=== PATIENT | female | born 1960 | race Caucasian/White ===

== ENCOUNTER → 2018-04-16 | Outpatient (CLI) | payer BC | LOC: M ADAMS 13:00 | DX: S92.355A Nondisplaced fracture of fifth metatarsal bone, left foot, initial encounter for closed fracture (principal); X58.XXXA Exposure to other specified factors, initial encounter; Y92.9 Unspecified place or not applicable; Y93.9 Activity, unspecified | CPT/HCPCS: 73630 ==

== ENCOUNTER → 2018-09-04 | Outpatient (REF) | payer BC ==
[2018-09-04 13:41] LABS: TOTAL 25(OH) VITAMIN D 24.2 NG/ML (30.0-100.0)
== END ==
LOC: M LABDRAW1 12:38
DX: S92.355K Nondisplaced fracture of fifth metatarsal bone, left foot, subsequent encounter for fracture with nonunion (principal)
CPT/HCPCS: 82306

== ENCOUNTER → 2018-10-27 | Outpatient (REF) | payer BC | LOC: M LABDRAW1 14:01 | PROVIDERS: ATTEND Physician Assistant Medical | DX: S92.355K Nondisplaced fracture of fifth metatarsal bone, left foot, subsequent encounter for fracture with nonunion (principal) ==

== ENCOUNTER 2018-12-24 10:19 | Emergency (ER) | payer BC ==
[~2018-12-24] VITALS: Ht 172.7 cm; Wt 77.3 kg
[2018-12-24] MEDS ORDERED: VITA200016 PO (10:26)
--- NOTE | 2018-12-24 11:49 | REP ---
Left breast ultrasound for focal of redness and tenderness at 9 o'clock near the nipple. The patient states she had a similar episode a month ago and received antibiotics and the lesion improved but has returned. The patient states there was no drainage procedure previously. The patient's most recent mammogram in our film file is dated 09/20/2012. There are no prior breast ultrasound studies in our film file. Ultrasound: At the 9 o'clock location of the left breast in the area of redness and tenderness there is a complex fluid collection measuring approximate 2.6 x 1.1 x 1.1 cm. By ultrasound this is nonspecific and is compatible with abscess or hematoma. With color Doppler there is hyperemia surrounding this fluid collection. No other lesions are identified when scanning the 8-10 o'clock locations of the left breast. Impression: There are findings compatible with abscess/hematoma at the 9 o'clock location of the left breast as discussed above. Electronically Signed by Mahamed Bhagat MD 12/24/2018 11:40 A
[2018-12-24 11:54] VITALS: BP 174/86
[2018-12-24] MEDS ORDERED: BACT800T5 PO (11:57)
--- NOTE | 2018-12-26 13:11 | ED PDOC ---
Post-Departure Follow-Up dr maddox faxed formal report of breast us for fu Flores Perry MD Dec 26, 2018 13:11
== END 2018-12-24 12:05 | disposition home or self-care (01) ==
LOC: M ED 10:19
DX: N61.1 Abscess of the breast and nipple (principal); F17.210 Nicotine dependence, cigarettes, uncomplicated

== ENCOUNTER → 2019-01-03 | Outpatient (REF) | payer BC ==
[~2019-01-03] MED LIST: BACT800T5 PO; VITA200016 PO
[2019-01-03 19:05] LABS: BASO % 0.9 % (0.0-1.0); EOS # 0.2 10^3/uL (0.0-0.50); EOS % 4.9 % (0.0-3.0); HEMATOCRIT 43.5 % (36.0-47.0); HEMOGLOBIN 14.4 g/dl (12.0-15.5); LYMPH # 1.1 10^3/uL (1.5-4.5); LYMPH % 23.2 % (24.0-44.0); MEAN CORPUSCULAR HEMOGLOBIN 32.4 pg (27.0-33.0); MEAN CORPUSCULAR HGB CONC 33.1 g/dl (32.0-36.5); MONO # 0.7 10^3/uL (0.0-0.8); MONO % 14.7 % (0.0-5.0); NEUTROPHILS # 2.6 10^3/uL (1.8-7.7); NEUTROPHILS % 54.8 % (36.0-66.0); PLATELET COUNT, AUTOMATED 165 10^3/uL (150-450); RED BLOOD COUNT 4.44 10^6/uL (4.00-5.40); WHITE BLOOD COUNT 4.7 10^3/uL (4.0-10.0)
[2019-01-03 19:18] LABS: ALT/SGPT 45 U/L (12-78); BILIRUBIN,TOTAL 0.3 MG/DL (0.2-1.0); BLOOD UREA NITROGEN 10 MG/DL (7-18); CALCIUM LEVEL 9.1 MG/DL (8.5-10.1); CARBON DIOXIDE LEVEL 28 MEQ/L (21-32); CHLORIDE LEVEL 106 MEQ/L (98-107); CREATININE FOR GFR 0.86 MG/DL (0.55-1.30); GLOMERULAR FILTRATION RATE > 60.0 (>51); GLUCOSE, FASTING 101 MG/DL (70-100); PTH INTACT 34.6 PG/ML (18.5-88.0); SODIUM LEVEL 140 MEQ/L (136-145)
[2019-01-03 19:19] LABS: ALBUMIN 3.9 GM/DL (3.2-5.2); CHOLESTEROL LEVEL 186 MG/DL (<200); CHOLESTEROL RISK RATIO 2.214 (<5); HDL CHOLESTEROL 84 MG/DL (>40); LDL CHOLESTEROL 90 MG/DL (<100); NON-HDL-C 102 MG/DL; TOTAL 25(OH) VITAMIN D 51.7 NG/ML (30.0-100.0); TOTAL PROTEIN 6.9 GM/DL (6.4-8.2); TRIGLYCERIDES LEVEL 59 MG/DL (<150)
== END ==
LOC: M SFHCPLAZ 14:55
PROVIDERS: ATTEND Nurse Practitioner Family
DX: Z13.228 Encounter for screening for other metabolic disorders (principal); Z13.220 Encounter for screening for lipoid disorders; E55.9 Vitamin D deficiency, unspecified

== ENCOUNTER → 2019-01-19 | Outpatient (CLI) | payer BC ==
--- NOTE | 2019-01-19 15:30 | REP ---
Chest x-ray: Two views. History: Shortness of breath. Comparison chest x-ray is from August 23, 2012. Findings: There is a linear zone of increased density in the left upper lobe region associated with a possible nodular density. This has ill-defined margins. It is new when compared with the 2012 prior study. Possible nodule is seen here measuring up to 1.6 cm. Remaining lung robbins are clear. Pleural angles are sharp. Heart is not enlarged. There are degenerative changes in the thoracic spine. Impression: Possible nodular density 1.6 cm in diameter in the left upper lobe associated with some linear opacity. Recommend chest CT study. Otherwise no acute disease. Electronically Signed by Davey Waite MD 01/19/2019 03:21 P
== END ==
LOC: M LAB 12:05 → M RAD 12:05
PROVIDERS: ATTEND Nurse Practitioner Family
DX: R06.02 Shortness of breath (principal)

== ENCOUNTER → 2019-01-24 | Outpatient (CLI) | payer BC ==
--- NOTE | 2019-01-24 11:00 | REP ---
SCREENING LOW-DOSE CT STUDY OF THE CHEST WITHOUT CONTRAST: HISTORY: Lung cancer screening. Nicotine dependence. Comparison chest x-ray is from August 23, 2012. 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 Corresponding axial CT images demonstrate a cavitary spiculated left upper lobe mass lesion measuring 3.2 cm in greatest transverse diameter x 1.8 cm in short axis dimension. This lesion is morphologically quite suspicious for primary lung malignancy. There are tiny granulomatous calcifications in the left upper lobe on page 66 and 73 of 108 in today's study. There is a 3 mm noncalcified nodule in the right lung apex on page 13. No other significant pulmonary nodule is appreciated. No other significant finding. IMPRESSION: Lung RADS category 4B suspicious screening chest CT. Spiculated mass in the left upper lobe highly suggestive of primary malignancy. Histologic sampling and staging PET scintigraphy should be considered. Electronically Signed by Davey Waite MD 01/24/2019 03:56 P
== END ==
LOC: M RAD 07:49
PROVIDERS: ATTEND Nurse Practitioner Family
DX: Z12.2 Encounter for screening for malignant neoplasm of respiratory organs (principal); R91.8 Other nonspecific abnormal finding of lung field; F17.200 Nicotine dependence, unspecified, uncomplicated

== ENCOUNTER → 2019-01-26 | Outpatient (CLI) | payer BC ==
--- NOTE | 2019-01-26 10:15 | PFTRPT ---
Site: [facility], [address] [place] [address], [id number] ID: [id number] Name: TRENA OTOOLE Visit Date: 01/26/2019 Second ID: [id number] Referring Doctor: CELESTE JACKSON Reviewing Doctor: Raulito Scott MD Paralegal Internship: Erendira GAITAN RRT Age: 58 : 1960 Sex: Female Race: Height: 68.00 Inches Weight: 173.00 Lbs BSA: 1.92 Order IDs: [id number] Requested Test(s): <RESP-PFT.DLCO> Diagnosis: R06.02 test meet the ATS standards for acceptability and repeatability. Pt was given four puffs of albuterol for postbronchodilator. Review Status: Not Reviewed Pre-Bronch Post-Bronch Pred Actual %Pred Actual %Chng SPIROMETRY FVC (L) 3.88 3.02 77 3.05 1 FEV1 (L) 3.01 2.10 69 2.13 1 FEV1/FVC (%) 79 70 88 70 FEF 25% (L/sec) 5.46 3.73 68 4.53 21 FEF 50% (L/sec) 3.70 1.87 50 1.85 -1 FEF 75% (L/sec) 1.27 0.48 37 0.50 4 FEF 25-75% (L/sec) 2.69 1.39 51 1.33 -4 FEF Max (L/sec) 7.06 4.89 69 5.51 12 FIVC (L) 2.97 2.88 -3 FIF 50% (L/sec) 3.68 3.20 87 3.24 1 FIF Max (L/sec) 3.36 3.31 -1 MVV (L/min) 101 72 71 Expiratory Time (sec) 7.98 7.98 Back Extrap Vol (L) 0.13 0.11 -17 Time To FEFmax (sec) 0.200 0.100 -50 LUNG VOLUMES SVC (L) 3.51 2.99 85 IC (L) 2.44 2.09 85 ERV (L) 1.07 0.90 84 TGV (L) 3.21 3.17 98 RV (Pleth) (L) 2.14 2.26 105 TLC (Pleth) (L) 5.65 5.26 93 RV/TLC (Pleth) (%) 38 43 113 DIFFUSION DLCOunc (ml/min/mmHg) 23.53 15.04 63 DL/VA (ml/min/mmHg/L) 4.16 3.11 74 VA (L) 5.65 4.83 85 BHT (sec) 10.33 IVC (L) 2.64 TLC (SB) (L) 4.98 AIRWAYS RESISTANCE Raw (cmH2O/L/s) 1.86 1.27 68 Gaw (L/s/cmH2O) 1.03 0.79 77 sRaw (cmH2O*s) 4.76 4.25 89 sGaw (1/cmH2O*s) 0.20 0.24 117
--- NOTE | 2019-01-30 12:06 | PULFX ---
DATE OF PROCEDURE: 01/26/2019 ORDERING PHYSICIAN: Patria INTERPRETATION: Pre and post bronchodilator study is of excellent technical quality. Forced vital capacity reduced. FEV1 in proportion. Obstructive index is, therefore, normal. Flow Volume Loop: Normal. No significant bronchodilator response identified. Lung Volumes: Total lung capacity is normal. Residual volume in proportion. Diffusing Capacity: Diffusing capacity is reduced but is appropriate for alveolar volume. Hemoglobin: No hemoglobin available for correction. Airways Mechanics: Airway resistance and conductance are normal. IMPRESSION: Nonspecific flow volume limitation with diffusion capacity impairment. Please correlate clinically. MTDD
== END ==
LOC: M CARPUL 09:24
PROVIDERS: ATTEND Nurse Practitioner Family
DX: R06.02 Shortness of breath (principal)
CPT/HCPCS: 76642; 77066; 94060; 94726; 94729; G0279

== ENCOUNTER → 2019-01-26 | Outpatient (CLI) | payer BC ==
--- NOTE | 2019-01-26 14:53 | REP ---
BILATERAL MAMMOGRAM WITH DIAGNOSTIC MAMMOGRAM LEFT BREAST AND LEFT BREAST ULTRASOUND: Family history of breast cancer in maternal aunt. [facility] lifetime risk of breast cancer 9.2%. There is a reported history of left breast abscess persisting despite antibiotic treatment. MLO and CC views of both breasts performed with 3D tomosynthesis. Comparison is made with a prior studies of 10/09/2014 and 09/20/2012. Moderate heterogeneous fibroglandular tissue is seen bilaterally. No mass is seen bilaterally. There is no architectural distortion. No clustered microcalcifications are seen. The area of suspected infection and abscess is marked on the skin with a triangular marker near the nipple in the medial left breast. There is no underlying mammographic abnormality at that location. Normal sized axillary lymph nodes are seen bilaterally. Real-time sonographic evaluation of the left breast performed at the 9-o'clock position of the left breast at the site of clinical infection and abscess. At that location is an irregular hypoechoic area which is quite close to the skin and in fact, appears to demonstrate a tract to the skin. The area measures approximately 2.2 x 1.0 x 0.4 cm. This may, in fact, represent an area of infection and abscess. However, an underlying neoplasm cannot totally be excluded. IMPRESSION: BIRADS 4: BI-RADS/ACR category 4 mammogram. Suspicious Abnormality - biopsy should be considered. No mammographic abnormality is seen bilaterally. At the site of suspected infection and abscess in the medial left breast, near the nipple, no mammographic abnormality is seen, however, by ultrasound, there is an irregular hypoechoic area measuring 2.2 x 1.0 x 0.4 cm. Reportedly this persists despite antibiotic treatment. This could represent an area of infection and abscess. However, underlying neoplasm cannot totally be excluded. Suggest tissue sampling for definitive diagnosis. Otherwise, followup ultrasound may be obtained after definitive treatment. This mammogram was interpreted with the aid of an FDA-approved computer-aided detection system. A. Negative x-ray reports should not delay biopsy if a dominant or clinically suspicious mass is present. B. Four to eight percent of cancers are not identified by x-ray. C. Adenosis and dense breasts may obscure an underlying neoplasm. The patient states she/he had a clinical breast exam in December 2018. The patient letter being requested is M4. ? Electronically Signed by Mahamed Farris MD 01/26/2019 03:39 P
== END ==
LOC: M RAD 10:26
PROVIDERS: ATTEND Nurse Practitioner Family
DX: N61.1 Abscess of the breast and nipple (principal); Z80.3 Family history of malignant neoplasm of breast; N63.20 Unspecified lump in the left breast, unspecified quadrant

== ENCOUNTER → 2019-01-28 | Outpatient (CLI) | payer BC | LOC: M LAB 11:12 | PROVIDERS: ATTEND Nurse Practitioner Family | DX: R91.8 Other nonspecific abnormal finding of lung field (principal) ==

== ENCOUNTER → 2019-02-09 | Outpatient (CLI) | payer BC ==
[~2019-02-09] MED LIST changes: +LIDOCAINE 1% MDV 20ML VIAL As Ordered ONE
--- NOTE | 2019-02-09 17:29 | REP ---
ULTRASOUND GUIDED LEFT BREAST BIOPSY The procedure was performed under the direct supervision of Dr. Waite The patient has a history of an irregular hypoechoic area measuring 2.2 x 1 by a 0.4 cm at the 9 o'clock position seen on a previous ultrasound dated 01/26/2018. The risks and benefits of the procedure were explained to the patient and informed consent was obtained. The left breast nodule was localized using ultrasound guidance. The skin was prepped and draped in a sterile fashion. 1% Xylocaine was used as a local anesthetic. Using ultrasound guidance a 13-gauge suction assisted Mammotome needle was inserted and for core biopsy samples were obtained. A marker clip was placed at the biopsy site. The patient tolerated the procedure well and there were no immediate complications. After the appropriate amount of monitored convalescence the patient was discharged from the department. Reviewed by JERMAINE Satnos 02/09/2019 03:24 P Electronically Signed by Davey Waite MD 02/09/2019 05:19 P
== END ==
LOC: M RADPRO 12:07
PROVIDERS: ATTEND Nurse Practitioner Family
DX: N61.1 Abscess of the breast and nipple (principal)

== ENCOUNTER → 2019-02-14 | Outpatient (CLI) | payer BC ==
[~2019-02-14] MED LIST changes: -LIDOCAINE 1% MDV 20ML VIAL As Ordered ONE
--- NOTE | 2019-02-14 13:57 | REP ---
PET/CT: HISTORY: Diagnosing lung cancer. COMPARISONS: Comparison CT study of the chest is from January 26, 2019. This showed a spiculated 3.2 cm mass in the left upper lobe. This was cavitary. TECHNIQUE: 51 minutes following the intravenous injection of a 9.06 mCi dose of F-18 FDG, three-dimensional PET scintigraphy is acquired from the skull base to the proximal thighs. Triplanar noncontrast CT scanning is acquired through the same anatomic range for attenuation correction, and image registration with scan parameters optimized to minimize radiation exposure to the patient. PET scintigraphy and CT datasets were fused and displayed on a workstation with multiplanar and projection display capability. PET/CT FINDINGS: The recently identified spiculated left upper lobe lung mass is quite hypermetabolic with maximum standard uptake value of 10.84. No other pulmonary parenchymal hypermetabolic uptake is seen. No hilar or mediastinal hypermetabolic uptake is observed. No abnormal adrenal uptake is seen. There is a small zone of subareolar hypermetabolic uptake in the left breast with mildly increased uptake, maximum SUV value 4.51 on the left compared to 2.05 on the right. This patient has just recently undergone and ultrasound guided needle biopsy procedure in the subareolar zone of the left breast. Pathology report showed chronic inflammation, no malignancy. This needle biopsy procedure was done 5 days prior. No axillary hypermetabolic uptake is seen. There is a hypermetabolic area in the descending colon in the left abdomen with maximum standard uptake value 12.63. The accompanying CT study shows a 2 cm fullness along the medial wall of the descending colon. An incidental colon malignancy must be suspected. This activity is considerably higher than background gastrointestinal mucosal uptake. In the abdomen and pelvis, no other abnormal hypermetabolic uptake is seen. Head and neck soft tissues are unremarkable. IMPRESSION: Incidental uptake at the recent biopsy site in the subareolar zone of the left breast. The left upper lobe lung mass is hypermetabolic. There is a small zone of markedly hypermetabolic uptake in the descending colon along its medial wall in the region of soft tissue fullness approximately 2 cm in diameter. A descending colon malignancy must be suspected. Recommend colonoscopy correlation. No other abnormal hypermetabolic uptake is seen. Electronically Signed by Davey Waite MD 02/14/2019 08:25 P
== END ==
LOC: M PLARAD 07:24
PROVIDERS: ATTEND Nurse Practitioner Family
DX: R91.8 Other nonspecific abnormal finding of lung field (principal); R92.8 Other abnormal and inconclusive findings on diagnostic imaging of breast; R93.3 Abnormal findings on diagnostic imaging of other parts of digestive tract
CPT/HCPCS: 78815; A9552

== ENCOUNTER → 2019-02-22 | Outpatient (REF) | payer BC ==
[2019-02-22 13:50] LABS: BASO # 0.1 10^3/uL (0.0-0.2); BASO % 0.5 % (0.0-1.0); EOS # 0.1 10^3/uL (0.0-0.50); HEMATOCRIT 43.3 % (36.0-47.0); HEMOGLOBIN 14.4 g/dl (12.0-15.5); LYMPH # 1.8 10^3/uL (1.5-4.5); MEAN CORPUSCULAR HGB CONC 33.3 g/dl (32.0-36.5); MEAN CORPUSCULAR VOLUME 96.2 fl (80.0-96.0); MONO # 0.8 10^3/uL (0.0-0.8); MONO % 7.9 % (0.0-5.0); NEUTROPHILS # 7.6 10^3/uL (1.8-7.7); NEUTROPHILS % 72.7 % (36.0-66.0); PLATELET COUNT, AUTOMATED 303 10^3/uL (150-450); WHITE BLOOD COUNT 10.5 10^3/uL (4.0-10.0)
[2019-02-22 14:04] LABS: INR 0.99; PARTIAL THROMBOPLASTIN TIME 29.3 SECONDS (25.4-37.6); PROTHROMBIN TIME 13.2 SECONDS (12.1-14.4)
[2019-02-22 14:09] LABS: BLOOD UREA NITROGEN 10 MG/DL (7-18); CALCIUM LEVEL 9.6 MG/DL (8.5-10.1); CARBON DIOXIDE LEVEL 30 MEQ/L (21-32); CHLORIDE LEVEL 105 MEQ/L (98-107); CREATININE FOR GFR 0.71 MG/DL (0.55-1.30); GLOMERULAR FILTRATION RATE > 60.0 (>51); GLUCOSE, FASTING 92 MG/DL (70-100); POTASSIUM SERUM 5.5 MEQ/L (3.5-5.1); SODIUM LEVEL 141 MEQ/L (136-145)
== END ==
LOC: M LAB REF 13:21
PROVIDERS: ATTEND Internal Medicine Pulmonary Disease
DX: R91.8 Other nonspecific abnormal finding of lung field (principal)

== ENCOUNTER 2019-03-05 08:00 | Day surgery (SDC) | payer BC ==
[~2019-03-05] VITALS: Ht 172.7 cm; Wt 76.4 kg
[~2019-03-05 08:00] MED LIST changes: +CHOL50003 PO; +FLUT1INH3 IN; +FLUT50SP33; +MUPI2OI TOP; +NICO14DI3 TD; +PROAAER10 INH
[2019-03-05] MEDS ORDERED: PROPOFOL 200 MG/20 ML VIAL As Ordered ONE ×2 (08:36→10:06)
[2019-03-05] MEDS ORDERED: LIDOCAINE 2% INJ 100 MG/5 ML SDV (FOR ANES.) As Ordered ONE (08:36)
[2019-03-05] MEDS ORDERED: NS 1,000 ML IV ONE (09:30)
[2019-03-05] MEDS ORDERED: GLYCOPYRROLATE INJ 0.2 MG/ML 2 ML VIAL As Ordered ONE (09:54)
[2019-03-05] MEDS ORDERED: fentaNYL 100 MCG/2 ML INJECTION (J3010) As Ordered ONE (10:04)
--- NOTE | 2019-03-05 10:13 | ROOR ---
Patient Name: Loree Viera Procedure Date: 03/05/2019 9:25 AM Date of : 1960 Age: 58 Room: [facility] Gender: Female Note Status: Finalized Procedure: Colonoscopy Indications: Abnormal PET scan of the GI tract Providers: Marcelo ANTONIO MD Referring MD: Melvi Malone Requesting Provider: Medicines: Monitored Anesthesia Care Complications: No immediate complications. Procedure: Pre-Anesthesia Assessment: - The heart rate, respiratory rate, oxygen saturations, blood pressure, adequacy of pulmonary ventilation, and response to care were monitored throughout the procedure. The Colonoscope was introduced through the anus and advanced to the terminal ileum, with identification of the appendiceal orifice and IC valve. The colonoscopy was performed without difficulty. The patient tolerated the procedure well. The quality of the bowel preparation was good. Findings: The perianal and digital rectal examinations were normal. A large polyp was found in the distal descending colon. The polyp was pedunculated. An endoloop was maneuvered over the polyp stalk and closed at the mucosal attachment prior to removal in order to prevent bleeding. The polyp was removed with a hot snare. Resection and retrieval were complete. Two semi-sessile polyps were found in the hepatic flexure and cecum. The polyps were 8 to 10 mm in size. These polyps were removed with a cold snare. Resection and retrieval were complete. A 4 mm polyp was found in the sigmoid colon. The polyp was sessile. The polyp was removed with a hot snare. Resection and retrieval were complete. Internal hemorrhoids were found during retroflexion. The hemorrhoids were medium-sized. Multiple medium-mouthed diverticula were found in the sigmoid colon. Impression: - One large (2.5-3 cm) pedunculated polyp in the distal descending colon, removed with a hot snare. Resected and retrieved. - Two 8 to 10 mm polyps at the hepatic flexure and in the cecum, removed with a cold snare. Resected and retrieved. - One 4 mm polyp in the sigmoid colon, removed with a hot snare. Resected and retrieved. - Internal hemorrhoids. - Diverticulosis in the sigmoid colon. Recommendation: - Telephone endoscopist for pathology results in 2 weeks. - Repeat colonoscopy for surveillance based on pathology results. Marcelo Antonio MD Marcelo ANTONIO MD 03/05/2019 10:13:49 AM Electronically signed by Marcelo ANTONIO MD Number of Addenda: 0 Note Initiated On: 03/05/2019 9:25 AM Estimated Blood Loss: Estimated blood loss: none.
[2019-03-05 10:44] VITALS: BP 154/72
== END 2019-03-05 10:50 | disposition home or self-care (01) ==
LOC: M OPP 08:00
PROVIDERS: ATTEND Internal Medicine Gastroenterology
DX: D12.0 Benign neoplasm of cecum (principal); D12.3 Benign neoplasm of transverse colon; D12.4 Benign neoplasm of descending colon; D12.5 Benign neoplasm of sigmoid colon; K57.30 Diverticulosis of large intestine without perforation or abscess without bleeding; K64.8 Other hemorrhoids; R93.3 Abnormal findings on diagnostic imaging of other parts of digestive tract
CPT/HCPCS: 45385; 88305; J3010

== ENCOUNTER → 2019-03-23 | Outpatient (CLI) | payer BC ==
[~2019-03-23] MED LIST changes: -FLUT1INH3 IN; +FLUT1INH3 INH; +ISOVUE-370 76% 100ML VIAL (Q9967) As Ordered ONE; +TIOT18INH INH
--- NOTE | 2019-03-30 13:12 | REP ---
Clinical: Acute chest pain and shortness of breath. Technique: Axial contrast enhanced images from the thoracic inlet to the upper abdomen using 100 ml Isovue 370 intravenous contrast material with coronal and sagittal re-formations. Findings: Satisfactory enhancement of the pulmonary vasculature is achieved and no filling defects are identified to suggest pulmonary embolus. Thoracic aorta is normal caliber without aneurysm or dissection. Heart and pericardium are essentially normal. Partially necrotic bilobed mass in the left upper lobe with marginal spiculations measuring approximately 3.3 cm is similar to prior examination. The lung robbins are otherwise well aerated and clear without acute consolidation or atelectasis. No pleural effusion/reaction. No pneumothorax. No adenopathy. Impression: No evidence for pulmonary embolus. Spiculated bilobed partially necrotic mass in the left upper lobe similar to prior. Electronically Signed by Anand Quintero MD 03/30/2019 01:03 P
== END ==
LOC: M RAD 07:55
PROVIDERS: ATTEND Internal Medicine Pulmonary Disease
DX: R06.02 Shortness of breath (principal); R91.8 Other nonspecific abnormal finding of lung field
CPT/HCPCS: 71275; Q9967

== ENCOUNTER → 2019-03-27 | Outpatient (CLI) | payer BC ==
[~2019-03-27] MED LIST changes: -ISOVUE-370 76% 100ML VIAL (Q9967) As Ordered ONE
--- NOTE | 2019-03-27 11:09 | REP ---
CT CHEST WITHOUT CONTRAST: HISTORY: Abnormal lung field findings. Comparison chest CT study March 23, 2019. Comparison PET/CT exam February 14, 2019. Comparison chest x-ray January 19/2019 with low-dose screening chest CT January 24, 2019. CT FINDINGS: Again noted is a spiculated cavitary left upper lobe 3.2 cm mass consistent with primary lung malignancy. This is unchanged from recent prior CT studies. There are fibrotic densities radiating to the posterosuperior pleura from the lesion. The tiny nodules previously noted in the right apex (page 14, page 64, and page 71 of 115, series 201 of today's study) are again seen unchanged . No other pulmonary nodule is appreciated. There are minimal emphysematous changes in the upper lobes. No pleural effusion is seen. No hilar or mediastinal mass is observed. No definite adenopathy seen on this noncontrast chest CT. There is a peripherally calcified nodule in the right thyroid lobe measuring 19 mm in greatest diameter. The adrenal glands are unremarkable. No other abnormality. IMPRESSION: Cavitary spiculated mass in the left upper lobe persists unchanged. Electronically Signed by Davey Waite MD 03/27/2019 11:52 A
== END ==
LOC: M RAD 07:46
PROVIDERS: ATTEND Internal Medicine Pulmonary Disease
DX: R91.8 Other nonspecific abnormal finding of lung field (principal); E04.1 Nontoxic single thyroid nodule; J43.9 Emphysema, unspecified

== ENCOUNTER → 2019-03-30 | Outpatient (REF) | payer BC ==
[2019-03-30 18:43] LABS: BASO # 0.1 10^3/uL (0.0-0.2); BASO % 0.6 % (0.0-1.0); EOS # 0.2 10^3/uL (0.0-0.50); EOS % 1.8 % (0.0-3.0); HEMATOCRIT 45.5 % (36.0-47.0); LYMPH # 2.2 10^3/uL (1.5-4.5); LYMPH % 24.4 % (24.0-44.0); MEAN CORPUSCULAR HEMOGLOBIN 32.8 pg (27.0-33.0); MEAN CORPUSCULAR VOLUME 99.3 fl (80.0-96.0); MONO # 0.8 10^3/uL (0.0-0.8); MONO % 8.8 % (0.0-5.0); NEUTROPHILS # 5.8 10^3/uL (1.8-7.7); NEUTROPHILS % 63.6 % (36.0-66.0); PLATELET COUNT, AUTOMATED 253 10^3/uL (150-450); RED BLOOD COUNT 4.58 10^6/uL (4.00-5.40); WHITE BLOOD COUNT 9.1 10^3/uL (4.0-10.0)
[2019-03-30 18:57] LABS: INR 0.99; PROTHROMBIN TIME 13.2 SECONDS (12.1-14.4)
[2019-03-30 19:09] LABS: BLOOD UREA NITROGEN 18 MG/DL (7-18); CALCIUM LEVEL 9.8 MG/DL (8.5-10.1); CARBON DIOXIDE LEVEL 29 MEQ/L (21-32); CHLORIDE LEVEL 103 MEQ/L (98-107); CREATININE FOR GFR 0.93 MG/DL (0.55-1.30); GLOMERULAR FILTRATION RATE > 60.0 (>51); GLUCOSE, FASTING 90 MG/DL (70-100); POTASSIUM SERUM 4.8 MEQ/L (3.5-5.1); SODIUM LEVEL 143 MEQ/L (136-145)
== END ==
LOC: M LAB REF 17:10
PROVIDERS: ATTEND Internal Medicine Pulmonary Disease
DX: J44.9 Chronic obstructive pulmonary disease, unspecified (principal)

== ENCOUNTER 2019-04-05 07:32 | Day surgery (SDC) | payer BC ==
[~2019-04-05] VITALS: Ht 172.7 cm; Wt 77.1 kg
[~2019-04-05 07:32] MED LIST changes: +LR 1,000 ML IV SCH
[2019-04-05] MEDS ORDERED: LIDOCAINE 2% INJ 100 MG/5 ML SDV (FOR ANES.) As Ordered ONE (08:11)
[2019-04-05] MEDS ORDERED: dexameTHASONE 4 MG/ML 1ML VIAL (J1100) As Ordered ONE (08:11)
[2019-04-05] MEDS ORDERED: PROPOFOL 200 MG/20 ML VIAL As Ordered ONE (08:11)
[2019-04-05] MEDS ORDERED: ROCURONIUM BROMIDE 50 MG/5 ML VIAL As Ordered ONE (08:11)
[2019-04-05] MEDS ORDERED: ONDANSETRON 4MG/2ML VIAL (J2405) As Ordered ONE (08:11)
[2019-04-05] MEDS ORDERED: fentaNYL 100 MCG/2 ML INJECTION (J3010) As Ordered ONE (08:12)
[2019-04-05] MEDS ORDERED: MIDAZOLAM INJ 2 MG/2 ML VIAL (J2250) As Ordered ONE (08:12)
[2019-04-05] MEDS ORDERED: LIDOCAINE VISCOUS 2% SOLN 15ML UDC As Ordered ONE (09:10)
[2019-04-05] MEDS ORDERED: LIDOCAINE 1% SDV INJ 30 ML VIAL As Ordered ONE (09:10)
[2019-04-05] MEDS ORDERED: EPINEPHrine 1MG/10ML SYRINGE 1.5IN As Ordered ONE (09:11)
[2019-04-05] MEDS ORDERED: CETACAINE SPRAY 5GM As Ordered ONE (09:11)
[2019-04-05] MEDS ORDERED: ePHEDrine SULFATE 25 MG/5 ML(5MG/ML) SYRINGE As Ordered ONE (09:37)
[2019-04-05] MEDS ORDERED: SUGAMMADEX SODIUM 500 MG/5 ML VIAL (BRIDION) As Ordered ONE (09:47)
--- NOTE | 2019-04-05 10:10 | ROOR ---
Patient Name: Loree Viera Procedure Date: 04/05/2019 8:52 AM Date of : 1960 Admit Type: Outpatient Age: 58 Note Status: Finalized Attending MD: Mamie Richter MD Procedure: Bronchoscopy Indications: Left upper lobe mass Providers: Mamie Richter MD (Doctor) Referring MD: 1. No Referring Physician 1. No Referring Physician, Admin. (Referring MD) Requesting Physician: Medicines: General Anesthesia, Cetacaine topical Complications: No immediate complications. Estimated blood loss: Minimal Procedure: Pre-Anesthesia Assessment: - Prior to the procedure, a History and Physical was performed, and patient medications and allergies were reviewed. The patient's tolerance of previous anesthesia was also reviewed. The risks and benefits of the procedure and the sedation options and risks were discussed with the patient. All questions were answered, and informed consent was obtained. Prior Anticoagulants: The patient has taken no previous anticoagulant or antiplatelet agents. ASA Grade Assessment: III - A patient with severe systemic disease. After reviewing the risks and benefits, the patient was deemed in satisfactory condition to undergo the procedure. The Bronchoscope was introduced through the mouth, via the endotracheal tube (the patient was intubated for the procedure) and advanced to the tracheobronchial tree of both lungs. The procedure was accomplished without difficulty. The patient tolerated the procedure well. Findings: The endotracheal tube is in good position. The trachea is of normal caliber. The steph is sharp. The tracheobronchial tree was examined to at least the first subsegmental level. Bronchial mucosa was normal; there are no endobronchial lesions, and no secretions. There was anatomical variant in left upper lobe segmental bronchi with seperate left upper lobe apical and posterior segmental branches. Electromagnetic navigation bronchoscopy utilizing the Penemarie K Murphy system with iLogic upgrade was performed. The CT scan was used for planning purposes. A virtual bronchoscopic image was generated using the planning software and the steph, left main bronchus steph, left lower lobe basilar segment, lingula, right upper lobe, right middle lobe and right lower lobe basilar segment registration points were marked on the virtual image. The target in the apical-posterior segment of the left upper lobe was marked. A mass 3.2 cm in size was found and a pathway was created. After a complete airway exam, the locatable guide/extended working channel was inserted and an automatic registration was performed by advancing the scope through the steph, left main bronchus steph, left lower lobe basilar segment, lingula, right upper lobe, right middle lobe and right lower lobe basilar segment. The navigation phase was then begun to locate the target lesion(s). Positioning was confirmed using fluoroscopy and off-center (in relation to the lesion) was confirmed using the Olympus radial probe US catheter. The locatable guide was removed from the extended working channel. Fluoroscopy guided transbronchial brushings of a mass were obtained in the apical-posterior segment of the left upper lobe with a needle brush and sent for routine cytology. Transbronchial brushing technique was selected because the sampling site was not visible endoscopically. Transbronchial needle aspirations of a mass were performed in the apical-posterior segment of the left upper lobe using a GenCut needle and sent for routine cytology. The procedure was guided by fluoroscopy. Transbronchial needle aspiration technique was selected because the sampling site was not visible endoscopically. Transbronchial biopsies of a mass were performed in the apical-posterior segment of the left upper lobe using forceps and sent for routine cytology. The procedure was guided by fluoroscopy. Transbronchial biopsy technique was selected because the sampling site was not visible endoscopically. Bronchoalveolar lavage was performed in the left upper lobe of the lung and sent for routine cytology. The return was blood-tinged. Impression: - Left upper lobe mass - The airway examination was normal. - Electromagnetic navigation bronchoscopy was performed. - Transbronchial brushings were obtained. - A transbronchial needle aspiration was performed. - Transbronchial lung biopsies were performed. - Bronchoalveolar lavage was performed Recommendation: - Await test results. - Follow up with bronchoscopist as previously scheduled. Attending Participation: I personally performed the entire procedure. Mamie Richter MD 04/05/2019 10:09:57 AM Number of Addenda: 0 Note Initiated On: 04/05/2019 8:52 AM
--- NOTE | 2019-04-05 10:23 | REP ---
C-ARM VIEWS OF THE CHEST: Two C-arm views of the left chest is performed during bronchoscopy. 2 minutes 28 seconds fluoroscopy time utilized. Electronically Signed by Mahamed Farris MD 04/09/2019 01:42 P
[2019-04-05] MEDS ORDERED: fentaNYL 100 MCG/2 ML INJECTION (J3010) IV PRN (10:45)
[2019-04-05] MEDS ORDERED: LR 1,000 ML IV SCH (10:45)
--- NOTE | 2019-04-05 10:53 | REP ---
Chest one-view HISTORY: Post bronchoscopy Comparison: Chest X-ray 01/19/[address] chest 03/27/2019 A 3.1 cm parenchymal nodule with an irregular border is present in the left upper lobe. This appears unchanged compared to the recent CT examination. The right lung is clear. The heart is normal in size. The pulmonary vasculature is normal in appearance. There is no pneumothorax. Impression: There is a 3.1 cm parenchymal nodule with an irregular border in the left upper lobe unchanged compared to the recent CT examination. Electronically Signed by Abdi Jerry MD 04/05/2019 10:45 A
[2019-04-05 11:10] VITALS: BP 154/71
== END 2019-04-05 11:26 | disposition home or self-care (01) ==
LOC: M SDC 07:32
PROVIDERS: ATTEND Internal Medicine Pulmonary Disease
DX: C34.12 Malignant neoplasm of upper lobe, left bronchus or lung (principal); J44.9 Chronic obstructive pulmonary disease, unspecified; Z79.51 Long term (current) use of inhaled steroids; F17.210 Nicotine dependence, cigarettes, uncomplicated
CPT/HCPCS: 31623; 31624; 31627; 31628; 31629; 71045; 76000; 88104; 88108; 88173; 88305; 88313; J1100; J2250; J2405; J3010

== ENCOUNTER → 2019-05-08 | Outpatient (CLI) | payer BC ==
[~2019-05-08] MED LIST changes: +LEVO750T13; -LR 1,000 ML IV SCH; +NICO21DI37; +TREL1AER INH
--- NOTE | 2019-05-09 10:54 | RADONC ---
RADIATION ONCOLOGY CONSULTATION NOTE DATE: 05/08/2019 CHART NUMBER: [id number] DIAGNOSIS: Left upper lobe lung cancer. STAGE: X, TIIA,NXM0 ECOG PERFORMANCE STATUS: 0 CONSULTATION NOTE: Ms. Viera is a very pleasant 58-year-old white female with the diagnosis of what appears to be a stage IIA, adenocarcinoma of the left upper lobe, presenting to us for discussion of her therapeutic options including lobectomy verses SBRT radiation. HISTORY OF PRESENT ILLNESS: The patient's history dates back almost 4 months at this point. In December of this year, she presented with shortness of breath, and a chest x-ray was done on 01/19/2019 that showed a possible 1.6 cm nodular density in the left upper lobe. A low-dose screening CAT scan was undertaken on 01/24/2019, and a 3.2 cm x 1.8 cm cavitary spiculated left upper lobe mass was found. On 02/14/2019, a PET CT scan was done and showed hypermetabolic uptake in her left upper lobe mass. There was also a small zone of hypermetabolic uptake in the descending colon. On 04/05/2019, a fine-needle aspirate biopsy was undertaken which was positive for malignancy consistent with non-small cell lung cancer favoring adenocarcinoma. The patient was seen by Dr. Courtney, and she was found to be a candidate for surgery. Her pulmonary function tests show an FEV1 of 2.1 with a diffusion capacity of 63%. She is favoring surgery but came to us to discuss SBRT and its possible advantages as well as drawbacks. PAST MEDICAL HISTORY: The patient's past medical history is positive for emphysema. She had a tonsillectomy and a tubal ligation in the past. ALLERGIES: The patient has no known drug allergies. SOCIAL HISTORY: The patient had smoked one and a half packs of cigarettes per day for 43 years. She drinks alcohol daily. FAMILY HISTORY: The patient's family history is positive for a mother with lung cancer as well as kidney cancer. There are also various other cancers on the mother's side of the family. REVIEW OF SYSTEMS: The patient's review of systems is positive for some shortness of breath as well as decreased energy and chest pain. She reports that she is tired quite a bit. It is otherwise not remarkable. She denies nausea, vomiting, fevers, chills, night sweats, diplopia, headaches, anxiety or depression, anorexia, weight loss, visual disturbances, chest pain, urinary or bowel difficulties, bone pain, or neurological problems. PHYSICAL EXAMINATION: The patient is a well-developed, well-nourished female in no acute distress. HEENT exam is normocephalic, atraumatic. Extraocular movements are intact. There is no palpable cervical, supraclavicular, infraclavicular, axillary, or inguinal lymphadenopathy present. Lungs are clear to auscultation and percussion. Heart has a regular rate and rhythm. Abdomen is benign with no hepatosplenomegaly, masses, or tenderness. Skeletal examination reveals no tenderness to pressure or percussion of the bony skeleton. Extremities reveal no clubbing, cyanosis, or edema. Neurologic exam is grossly intact, as is the remainder of the physical examination. ASSESSMENT: I had a very lengthy discussion with this patient and discussed the two major options for her, one being surgical resection with lobectomy and the other being definitive external beam radiation therapy with SBRT in [place]. We discussed the pluses and minuses of each of these options. After a lengthy discussion, the patient has decided to undergo surgery. I agree with this. I think she would be better served by surgical resection than with SBRT. I have personally called and left a message for Dr. Courtney and subsequently spoke with Dr. Ghassan Courtney, the thoracic surgeon, to let him know to schedule this patient and that she wishes to undergo surgery. In addition, I have asked the patient to contact Dr. Courtney's office as well in order to be thorough, close the loop and make sure there is no further delay. Indeed, this situation has been going back to December of this year and it is now April. Apparently, the lesion has been growing slowly in size and it would be better to address this sooner rather than later. I have not set up a further appointment in our office since she will not be receiving radiation and is in the very capable in excellent hands of Dr. Courtney. Since she will be undergoing lobectomy, lymph node sampling will be undertaken. Further recommendations may be necessary with regards to subsequent treatment depending on the results of that lymph node sampling, and I will defer to Dr. Courtney to refer the patient back to me if he feels that radiation would be indicated. The same would ago for systemic therapy. I will defer to Dr. Courtney's expertise with regards to the need for referral to medical oncology. cc: MD Mamie Pickard MD Rosemary Soosairaj, [employer]
== END ==
LOC: M ONCR 10:04
PROVIDERS: ATTEND Radiology Radiation Oncology
DX: C34.12 Malignant neoplasm of upper lobe, left bronchus or lung (principal)

== ENCOUNTER → 2019-05-14 | Outpatient (CLI) | payer BC ==
[~2019-05-14] MED LIST changes: +HYDR-4571 PO; -LEVO750T13; +LEVO750T13 PO; -NICO21DI37; +NICO21DI37 TOP
--- NOTE | 2019-05-14 12:19 | REP ---
PA and lateral chest: Comparisons are 01/19/[address] dated 03/27/2019. The curvilinear density in the left upper lobe is unchanged. There is slight effacement of the left costophrenic angle as an interval change, possibly a small new left pleural effusion. The left lung is otherwise clear. The right lung is clear. Cardiac size is normal. The sonny, mediastinum, skeletal structures are unremarkable. Impression: Stable curvilinear density in the left upper lobe. New slight effacement of the left costophrenic angle. Electronically Signed by Mahamed Bhagat MD 05/14/2019 12:11 P
[2019-05-14 13:40] LABS: BLOOD UREA NITROGEN 10 MG/DL (7-18); CREATININE FOR GFR 0.92 MG/DL (0.55-1.30); GLOMERULAR FILTRATION RATE > 60.0 (>51)
[2019-05-14 13:42] LABS: BASO % 0.3 % (0.0-1.0); EOS % 0.1 % (0.0-3.0); HEMATOCRIT 43.1 % (36.0-47.0); HEMOGLOBIN 14.2 g/dl (12.0-15.5); LYMPH # 1.9 10^3/uL (1.5-4.5); LYMPH % 13.8 % (24.0-44.0); MEAN CORPUSCULAR HEMOGLOBIN 32.5 pg (27.0-33.0); MEAN CORPUSCULAR HGB CONC 32.9 g/dl (32.0-36.5); MEAN CORPUSCULAR VOLUME 98.6 fl (80.0-96.0); MONO # 1.8 10^3/uL (0.0-0.8); MONO % 12.6 % (0.0-5.0); NEUTROPHILS # 10.1 10^3/uL (1.8-7.7); NEUTROPHILS % 72.5 % (36.0-66.0); PLATELET COUNT, AUTOMATED 277 10^3/uL (150-450); RED BLOOD COUNT 4.37 10^6/uL (4.00-5.40); WHITE BLOOD COUNT 13.9 10^3/uL (4.0-10.0)
== END ==
LOC: M SMT 10:48
PROVIDERS: ATTEND Thoracic Surgery (Cardiothoracic Vascular Surgery)
DX: Z01.812 Encounter for preprocedural laboratory examination (principal); J44.9 Chronic obstructive pulmonary disease, unspecified; R05 Cough; R50.9 Fever, unspecified; C34.12 Malignant neoplasm of upper lobe, left bronchus or lung

== ENCOUNTER 2019-05-15 08:41 | Emergency (ER) | payer BC ==
[~2019-05-15] VITALS: Ht 172.7 cm; Wt 77.4 kg
[~2019-05-15 08:41] MED LIST changes: -HYDR-4571 PO; -LEVO750T13 PO; -NICO21DI37 TOP
[2019-05-15] MEDS ORDERED: LEVO750T13 PO (08:49)
[2019-05-15] MEDS ORDERED: NICO21DI37 TOP (08:49)
[2019-05-15] MEDS ORDERED: ISOVUE-370 76% 100ML VIAL (Q9967) As Ordered ONE (09:44)
[2019-05-15 10:20] VITALS: BP 134/67
--- NOTE | 2019-05-15 10:34 | REP ---
CT of the chest with IV contrast: Comparison is 03/27/2019. The known spiculated cavitary lesion in the left upper lobe as increased in size and the spiculation now extends to the medial, lateral and apical pleura accompanied by consolidation all as interval changes. There is a new spiculated lesion in the apex of the right lung on image 16 measuring 12 mm in diameter. This is in the approximate location of a tiny nodule identified on 03/27/2019. The tiny nodule identified in the lingula on 03/07/2019 is unchanged. The second tiny nodule identified in the lingula on 03/27/2019 is unchanged. There are no other infiltrates or pleural effusions. There are no other masses or nodules. There is mild atelectasis in the medial basilar segment of the left lower lobe. There is an enlarged aorticopulmonic window mediastinal node measuring up to 12 mm short axis. This measured 6 mm on 03/27/2019. The visualized upper abdominal contents are unremarkable. There is no adrenal mass. Impression: The known right upper lobe spiculated cavitary lesion has increased in size and the spiculation has increased and is now accompanied by consolidation as described as progressive interval changes. There is a new small spiculation in the apex of the right lung. There are two tiny nodules in the lingula, unchanged, compatible with a benign etiology. No acute infiltrate or pleural effusion is identified. There is mild atelectasis in the medial basilar segment of the left lower lobe. Electronically Signed by Mahamed Bhagat MD 05/15/2019 10:25 A
--- NOTE | 2019-05-15 12:32 | ER ---
DATE OF CONSULTATION: 05/15/2019 Patient is a 58-year-old white female with known adenocarcinoma of the left upper lobe who presented yesterday with fever, chills and sweats. She had productive sputum. She also more ominously complained of pain in her left shoulder blade. Patient was therefore sent to the emergency room where she underwent a CT scan after obtaining a chest x-ray. She feels better today. She states her temperature is down. She still has some pain but it is much less. There is still a cough. Her CT scan today shows an upper lobe posterior pneumonia. The tumor does not extend to the chest wall. She does have inflammation of the pleura and a thickened pleura giving rise to her pain secondary to pneumonia. She is on Levaquin 750 mg every day. I will see her back in the office in one week in followup to discuss scheduling her left upper lobectomy. Our hands are tied until this pneumonia resolves. Her sputum culture from yesterday showed a few gram positive cocci in pairs, chains and clusters, a few gram negative rods and a few gram negative cocci. Actual culture is still pending. There were no AFB seen. MTDD
== END 2019-05-15 10:22 | disposition home or self-care (01) ==
LOC: M ED 08:41
DX: J18.1 Lobar pneumonia, unspecified organism (principal); C34.12 Malignant neoplasm of upper lobe, left bronchus or lung; Z79.899 Other long term (current) drug therapy; Z79.51 Long term (current) use of inhaled steroids; Z79.2 Long term (current) use of antibiotics
CPT/HCPCS: 71260; 80047; 99284; Q9967

== ENCOUNTER → 2019-05-21 | Outpatient (CLI) | payer BC ==
[~2019-05-21] MED LIST changes: +LEVO750T13 PO; +NICO21DI37 TOP
--- NOTE | 2019-05-22 04:06 | REP ---
Clinical: Pneumonia. Technique: PA and lateral. Comparison: 05/14/2019. Findings: Ill-defined airspace disease noted in the left apical region increased from prior examination. Follow-up is required to exclude more significant pathology including neoplasm. No effusion. No obvious adenopathy. No pneumothorax. Cardiac silhouette is normal. Skeletal structures are intact. Impression: Ill-defined airspace disease involving the left apex increased from prior examination. Follow-up and consultation may be warranted to exclude underlying pathology including neoplasm. Electronically Signed by Anand Quintero MD 05/22/2019 03:57 A
== END ==
LOC: M SMT 10:37
PROVIDERS: ATTEND Thoracic Surgery (Cardiothoracic Vascular Surgery)
DX: J18.9 Pneumonia, unspecified organism (principal)

== ENCOUNTER → 2019-05-22 | Outpatient (CLI) | payer BC ==
[2019-05-22 13:42] LABS: HEMATOCRIT 37.9 % (36.0-47.0); HEMOGLOBIN 12.6 g/dl (12.0-15.5); MEAN CORPUSCULAR HEMOGLOBIN 31.9 pg (27.0-33.0); MEAN CORPUSCULAR HGB CONC 33.2 g/dl (32.0-36.5); MEAN CORPUSCULAR VOLUME 95.9 fl (80.0-96.0); PLATELET COUNT, AUTOMATED 385 10^3/uL (150-450); RED BLOOD COUNT 3.95 10^6/uL (4.00-5.40); WHITE BLOOD COUNT 14.4 10^3/uL (4.0-10.0)
[2019-05-22 14:01] LABS: BLOOD UREA NITROGEN 10 MG/DL (7-18); CALCIUM LEVEL 8.6 MG/DL (8.5-10.1); CARBON DIOXIDE LEVEL 30 MEQ/L (21-32); CHLORIDE LEVEL 103 MEQ/L (98-107); CREATININE FOR GFR 0.62 MG/DL (0.55-1.30); GLOMERULAR FILTRATION RATE > 60.0 (>51); GLUCOSE, FASTING 112 MG/DL (70-100); POTASSIUM SERUM 3.9 MEQ/L (3.5-5.1); SODIUM LEVEL 138 MEQ/L (136-145)
[2019-05-22 14:04] LABS: BASO # 0.1 10^3/uL (0.0-0.2); BASO % 0.5 % (0.0-1.0); EOS # 0.1 10^3/uL (0.0-0.50); EOS % 0.7 % (0.0-3.0); LYMPH # 1.9 10^3/uL (1.5-4.5); LYMPH % 12.9 % (24.0-44.0); MONO # 1.7 10^3/uL (0.0-0.8); MONO % 11.1 % (0.0-5.0); NEUTROPHILS # 10.6 10^3/uL (1.8-7.7); NEUTROPHILS % 71.5 % (36.0-66.0)
--- NOTE | 2019-05-22 14:24 | REP ---
PA and lateral chest: Comparison is 05/21/2019. The patient's known mass in the left apex is unchanged. The left lung is otherwise clear. The right lung is clear. Cardiac size is normal. The sonny, mediastinum, skeletal structures are unremarkable. Impression: The left apical mass is unchanged. There are no acute cardiopulmonary findings. Electronically Signed by Mahamed Bhagat MD 05/22/2019 02:16 P
== END ==
LOC: M ADMPAT 13:10 → EDSTATUS 14:42
PROVIDERS: ATTEND Thoracic Surgery (Cardiothoracic Vascular Surgery)
DX: C34.00 Malignant neoplasm of unspecified main bronchus (principal)

== ENCOUNTER → 2019-05-24 | Outpatient (CLI) | payer BC ==
--- NOTE | 2019-05-25 09:25 | REP ---
Clinical: Pneumonia. Follow-up . Comparison: 05/22/2019, 04/05/2019 . Technique: PA and lateral. Findings: The mediastinum and cardiac silhouette are normal. A left upper lobe/left apical opacity is again appreciated. Remainder of lung robbins are clear. No effusion. No pneumothorax. Skeletal structures intact. Impression: Moderate left apical opacity again appreciated. Differential diagnosis includes pneumonia as well as the possibility of malignancy. Correlation and follow up required. Electronically Signed by Anand Quintero MD 05/25/2019 09:17 A
== END ==
LOC: M SMT 08:07
PROVIDERS: ATTEND Thoracic Surgery (Cardiothoracic Vascular Surgery)
DX: J18.9 Pneumonia, unspecified organism (principal); R91.8 Other nonspecific abnormal finding of lung field

== ENCOUNTER → 2019-05-29 | Outpatient (CLI) | payer BC ==
[2019-05-29 11:24] LABS: BASO # 0.1 10^3/uL (0.0-0.2); BASO % 0.8 % (0.0-1.0); EOS # 0.1 10^3/uL (0.0-0.50); EOS % 1.4 % (0.0-3.0); HEMATOCRIT 42.4 % (36.0-47.0); HEMOGLOBIN 13.8 g/dl (12.0-15.5); LYMPH # 2.5 10^3/uL (1.5-4.5); LYMPH % 24.6 % (24.0-44.0); MEAN CORPUSCULAR HEMOGLOBIN 31.7 pg (27.0-33.0); MEAN CORPUSCULAR HGB CONC 32.5 g/dl (32.0-36.5); MEAN CORPUSCULAR VOLUME 97.2 fl (80.0-96.0); MONO % 9.7 % (0.0-5.0); NEUTROPHILS # 6.2 10^3/uL (1.8-7.7); NEUTROPHILS % 61.8 % (36.0-66.0); PLATELET COUNT, AUTOMATED 411 10^3/uL (150-450); RED BLOOD COUNT 4.36 10^6/uL (4.00-5.40)
== END ==
LOC: M SMT 09:56
PROVIDERS: ATTEND Thoracic Surgery (Cardiothoracic Vascular Surgery)
DX: J18.9 Pneumonia, unspecified organism (principal)

== ENCOUNTER → 2019-05-30 | Outpatient (CLI) | payer BC | LOC: M SMT 08:52 | PROVIDERS: ATTEND Internal Medicine Pulmonary Disease | DX: J18.9 Pneumonia, unspecified organism (principal) ==

== ENCOUNTER → 2019-05-30 | Outpatient (CLI) | payer BC ==
--- NOTE | 2019-05-30 08:22 | REP ---
Clinical: Pneumonia. Technique: PA and lateral. Comparison: 05/14/2019. Findings: There is a somewhat progressively enlarging area of opacity involving the left apex possibly containing small cystic/cavitary components which is increased through 05/14/2019. Mediastinum and cardiac silhouette normal. Remainder of lung robbins are clear. No effusion. No pneumothorax. Skeletal structures intact. Impression: Increasing area of opacity in the left apex with suspected small scattered cavitary component. Electronically Signed by Anand Quintero MD 05/30/2019 08:13 A
== END ==
LOC: M SMT 07:58
PROVIDERS: ATTEND Thoracic Surgery (Cardiothoracic Vascular Surgery)
DX: J18.9 Pneumonia, unspecified organism (principal)

== ENCOUNTER → 2019-06-01 | Outpatient (CLI) | payer BC ==
[~2019-06-01] MED LIST changes: +HYDR-4571 PO
[2019-06-01 13:13] LABS: HEMATOCRIT 40.9 % (36.0-47.0); HEMOGLOBIN 13.5 g/dl (12.0-15.5); MEAN CORPUSCULAR HEMOGLOBIN 32.1 pg (27.0-33.0); MEAN CORPUSCULAR VOLUME 97.1 fl (80.0-96.0); PLATELET COUNT, AUTOMATED 445 10^3/uL (150-450); RED BLOOD COUNT 4.21 10^6/uL (4.00-5.40); WHITE BLOOD COUNT 12.7 10^3/uL (4.0-10.0)
[2019-06-01 13:23] LABS: ABG BASE EXCESS 0.9 (-2.0-2.0); ABG HCO3 23.4 MEQ/L (22.0-26.0); ABG O2 SATURATION 95.5 % (95.0-99.0); ABG PARTIAL PRESSURE CO2 31.2 mmHg (35.0-45.0); ABG STANDARD HCO3 25.2 MEQ/L (22.0-26.0); ABG TOTAL CO2 24.4 MEQ/L (22.0-29.0); ABG pH (ARTERIAL) 7.493 UNITS (7.350-7.450)
[2019-06-01 13:25] LABS: INR 1.14; PROTHROMBIN TIME 14.3 SECONDS (11.8-14.0)
[2019-06-01 13:26] LABS: PARTIAL THROMBOPLASTIN TIME 32.6 SECONDS (25.0-38.4)
[2019-06-01 13:31] LABS: BLOOD UREA NITROGEN 11 MG/DL (7-18); CALCIUM LEVEL 9.1 MG/DL (8.5-10.1); CARBON DIOXIDE LEVEL 32 MEQ/L (21-32); CHLORIDE LEVEL 106 MEQ/L (98-107); GLOMERULAR FILTRATION RATE > 60.0 (>51); GLUCOSE, FASTING 95 MG/DL (70-100); POTASSIUM SERUM 4.5 MEQ/L (3.5-5.1); SODIUM LEVEL 143 MEQ/L (136-145)
[2019-06-01 14:07] LABS: APPEARANCE, URINE HAZY (CLEAR); BACTERIA, URINE AUTO 1+ (NEGATIVE); BILIRUBIN, URINE AUTO NEGATIVE (NEGATIVE); BLOOD, URINE BLOOD NEGATIVE (NEGATIVE); COLOR, URINE YELLOW (YELLOW); GLUCOSE, URINE (UA) AUTO NEGATIVE (NEGATIVE); KETONE, URINE AUTO TRACE mg/dL (NEGATIVE); LEUKOCYTE ESTERASE, URINE AUTO NEGATIVE (NEGATIVE); MUCUS, URINE SMALL (NEGATIVE); NITRITE, URINE AUTO NEGATIVE (NEGATIVE); PROTEIN, URINE AUTO NEGATIVE (NEGATIVE); RBC, URINE AUTO 3 /HPF (0-3); SQUAMOUS EPITHELIAL CELL UR AU 6 /HPF (0-6); WBC, URINE AUTO 1 /HPF (0-3)
--- NOTE | 2019-06-01 14:25 | REP ---
Clinical: Preoperative assessment. Technique: PA and lateral. Comparison: 05/30/2019. Findings: Left apical opacity unchanged. Mediastinum and cardiac silhouette normal. No effusion. No pneumothorax. Skeletal structures intact. Impression: Left apical opacity again noted. Electronically Signed by Anand Quintero MD 06/01/2019 02:17 P
--- NOTE | 2019-06-02 19:53 | ECGEPIP ---
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
== END ==
LOC: M ADMPAT 12:44
PROVIDERS: ATTEND Thoracic Surgery (Cardiothoracic Vascular Surgery)
DX: C34.12 Malignant neoplasm of upper lobe, left bronchus or lung (principal)

== ENCOUNTER 2019-06-06 06:49 | Inpatient (IN) | payer BC ==
[2019-06-01 13:45] VITALS: BP 119/69
[~2019-06-06] VITALS: Ht 162.6 cm; Wt 75.7 kg
[2019-06-06] VITALS (11 sets, daily range): BP systolic 106–129; BP diastolic 52–63; O2SAT 95
[~2019-06-06 06:49] MED LIST changes: -HYDR-4571 PO; +LR 1,000 ML IV ONE; +MUPIROCIN 2% OINT 22 GM TUBE TOP ONE
[2019-06-06] MEDS ORDERED: LIDOCAINE 2% INJ 100 MG/5 ML SDV (FOR ANES.) As Ordered ONE (07:01)
[2019-06-06] MEDS ORDERED: PROPOFOL 200 MG/20 ML VIAL As Ordered ONE ×2 (07:01→11:00)
[2019-06-06] MEDS ORDERED: ROCURONIUM BROMIDE 50 MG/5 ML VIAL As Ordered ONE ×3 (07:01→11:03)
[2019-06-06] MEDS ORDERED: ONDANSETRON 4MG/2ML VIAL (J2405) As Ordered ONE (07:05)
[2019-06-06] MEDS ORDERED: dexameTHASONE 4 MG/ML 1ML VIAL (J1100) As Ordered ONE (07:05)
[2019-06-06] MEDS ORDERED: fentaNYL 250 MCG/5 ML INJECTION (J3010) As Ordered ONE ×2 (07:06→09:37)
[2019-06-06] MEDS ORDERED: CETACAINE SPRAY 5GM As Ordered ONE (07:26)
[2019-06-06] MEDS ORDERED: fentaNYL 100 MCG/2 ML INJECTION (J3010) As Ordered ONE (07:38)
[2019-06-06] MEDS ORDERED: MIDAZOLAM INJ 2 MG/2 ML VIAL (J2250) As Ordered ONE (07:38)
[2019-06-06] MEDS: fentaNYL 100 MCG/2 ML INJECTION (J3010) IV SCH ×2 (08:01→08:03)
[2019-06-06] MEDS: MIDAZOLAM INJ 2 MG/2 ML VIAL (J2250) IV SCH ×2 (08:01→08:03)
[2019-06-06] MEDS ORDERED: BUPIVACAINE HCL 0.5% 10 ML VIAL As Ordered ONE (08:10)
[2019-06-06] MEDS ORDERED: BUPIVACAINE LIPOSOME/PF 1.3% 20ML VIAL (13.3MG/ML)(EXPAREL)(C9290 PER1MG) As Ordered ONE (08:10)
[2019-06-06] MEDS ORDERED: ceFAZolin 1GM INJ (J0690 PER 500MG) As Ordered ONE (08:10)
[2019-06-06] MEDS ORDERED: ACETAMINOPHEN 1000MG 100ML IV BTL (OFIRMEV) (J0131 PER 10MG) As Ordered ONE (09:30)
[2019-06-06] MEDS ORDERED: LABETALOL HCL 100 MG/20 ML VIAL As Ordered ONE (09:40)
[2019-06-06] MEDS ORDERED: SUGAMMADEX SODIUM 500 MG/5 ML VIAL (BRIDION) As Ordered ONE (10:12)
[2019-06-06] MEDS ORDERED: BUPIVACAINE HCL 0.25% 30 ML VIAL As Ordered ONE (11:09)
[2019-06-06] MEDS ORDERED: KETOROLAC 60 MG/2 ML VIAL (J1885) As Ordered ONE (13:16)
[2019-06-06] MEDS ORDERED: METOCLOPRAMIDE INJ 10MG/2ML VIAL (J2765) IV PRN ×2 (14:00→15:15)
[2019-06-06] MEDS ORDERED: EPIDURAL/PCA KEYS XX PRN (14:00)
[2019-06-06] MEDS ORDERED: diphenhydrAMINE INJ 50MG/ML VIAL (J1200) IV PRN (14:00)
[2019-06-06] MEDS ORDERED: ONDANSETRON 4MG/2ML VIAL (J2405) IV PRN ×2 (14:00→15:15)
[2019-06-06] MEDS: FENTANYL/BUPIVACAINE/NACL BAG 250 ML EPIDURAL SCH (14:00)
[2019-06-06] MEDS ORDERED: NALOXONE INJ 0.4 MG/1 ML VIAL (J2310) IV PRN (14:00)
[2019-06-06] MEDS ORDERED: WALLBOXKEY XX PRN (14:00)
[2019-06-06] MEDS: KCL 20MEQ IN D5/NS 1000ML 1,000 ML IV SCH (14:05)
[2019-06-06] MEDS ORDERED: FENTANYL 2MCG/ML BUPIVACAINE 0.0625% NACL 250ML IV BAG As Ordered ONE (14:14)
[2019-06-06] MEDS ORDERED: LEVALBUTEROL 1.25 MG/0.5 ML CONCENTRATE NEB NEB PRN (14:15)
[2019-06-06] MEDS ORDERED: PERCOCET 5MG/325MG TAB PO PRN ×3 (14:15→15:15)
[2019-06-06] MEDS ORDERED: ACETAMINOPHEN TAB 650MG DOSE (2X325MG) PO PRN (14:15)
[2019-06-06 14:55] LABS: ABG BASE EXCESS -2.5 (-2.0-2.0); ABG HCO3 22.7 MEQ/L (22.0-26.0); ABG O2 SATURATION 96.6 % (95.0-99.0); ABG PARTIAL PRESSURE CO2 41.1 mmHg (35.0-45.0); ABG STANDARD HCO3 22.4 MEQ/L (22.0-26.0); ABG pH (ARTERIAL) 7.361 UNITS (7.350-7.450); BASO % 0.3 % (0.0-1.0); EOS % 0.1 % (0.0-3.0); HEMATOCRIT 36.2 % (36.0-47.0); LYMPH # 1.2 10^3/uL (1.5-4.5); LYMPH % 7.7 % (24.0-44.0); MEAN CORPUSCULAR HEMOGLOBIN 32.2 pg (27.0-33.0); MEAN CORPUSCULAR HGB CONC 33.1 g/dl (32.0-36.5); MEAN CORPUSCULAR VOLUME 97.1 fl (80.0-96.0); MONO # 0.6 10^3/uL (0.0-0.8); MONO % 3.6 % (0.0-5.0); NEUTROPHILS # 13.8 10^3/uL (1.8-7.7); NEUTROPHILS % 87.7 % (36.0-66.0); PLATELET COUNT, AUTOMATED 379 10^3/uL (150-450); RED BLOOD COUNT 3.73 10^6/uL (4.00-5.40); WHITE BLOOD COUNT 15.7 10^3/uL (4.0-10.0)
[2019-06-06] MEDS ORDERED: PERCOCET 5MG/325MG TAB As Ordered ONE (14:57)
[2019-06-06] MEDS: ONDANSETRON 4MG/2ML VIAL (J2405) IV PRN (15:11)
[2019-06-06] MEDS ORDERED: fentaNYL 100 MCG/2 ML INJECTION (J3010) IV PRN (15:15)
[2019-06-06] MEDS ORDERED: LR 1,000 ML IV SCH (15:15)
[2019-06-06] MEDS ORDERED: MEPERIDINE INJ 25 MG/ML VIAL (J2175) IV PRN (15:15)
[2019-06-06 15:20] LABS: BLOOD UREA NITROGEN 8 MG/DL (7-18); CALCIUM LEVEL 8.6 MG/DL (8.5-10.1); CARBON DIOXIDE LEVEL 25 MEQ/L (21-32); CHLORIDE LEVEL 109 MEQ/L (98-107); CREATININE FOR GFR 0.73 MG/DL (0.55-1.30); GLOMERULAR FILTRATION RATE > 60.0 (>51); GLUCOSE, FASTING 157 MG/DL (70-100); POTASSIUM SERUM 4.8 MEQ/L (3.5-5.1); SODIUM LEVEL 140 MEQ/L (136-145)
[2019-06-06] MEDS: ceFAZolin SOD 1 GM in D5W MINI-BAG PLUS 50 ML IV SCH ×2 (16:36→23:59)
[2019-06-06] MEDS: NICOTINE 21MG/24HR 1 EA TRANSDERMAL TD SCH (16:37)
[2019-06-06] MEDS: LEVALBUTEROL 1.25 MG/0.5 ML CONCENTRATE NEB NEB SCH (20:01)
[2019-06-06] MEDS: HEPARIN SOD (PORCINE) 5000 UNITS/ML VIAL SC SCH (20:28)
[2019-06-06] MEDS: KETOROLAC 30 MG/ML VIAL (J1885) IV SCH (20:29)
[2019-06-06] MEDS: DOCUSATE SODIUM 100 MG CAP PO SCH (20:29)
[2019-06-07] VITALS (24 sets, daily range): BP systolic 99–144; BP diastolic 52–68
[2019-06-07] MEDS: LEVALBUTEROL 1.25 MG/0.5 ML CONCENTRATE NEB NEB SCH ×4 (02:49→20:01)
[2019-06-07] MEDS: KETOROLAC 30 MG/ML VIAL (J1885) IV SCH ×4 (02:52→20:59)
[2019-06-07] MEDS: KCL 20MEQ IN D5/NS 1000ML 1,000 ML IV SCH (02:53)
--- NOTE | 2019-06-07 03:11 | REP ---
Clinical: Status post left upper lobectomy. Comparison: 06/01/2019. Findings: Two left-sided chest tubes are identified along with small amount of pleural fluid, postsurgical subcutaneous emphysema, and volume loss consistent with recent partial lobectomy. The mediastinum and cardiac silhouette appear normal. The right hemithorax appears clear. Skeletal structures appear intact. Impression: Relatively normal postsurgical changes involving left hemithorax. Electronically Signed by Anand Quintero MD 06/07/2019 03:01 A
[2019-06-07 05:06] LABS: BASO % 0.2 % (0.0-1.0); EOS % 0.4 % (0.0-3.0); HEMATOCRIT 35.6 % (36.0-47.0); HEMOGLOBIN 11.4 g/dl (12.0-15.5); LYMPH # 2.3 10^3/uL (1.5-4.5); LYMPH % 22.7 % (24.0-44.0); MEAN CORPUSCULAR HEMOGLOBIN 31.8 pg (27.0-33.0); MEAN CORPUSCULAR VOLUME 99.4 fl (80.0-96.0); MONO # 0.9 10^3/uL (0.0-0.8); MONO % 8.5 % (0.0-5.0); NEUTROPHILS # 6.8 10^3/uL (1.8-7.7); NEUTROPHILS % 67.8 % (36.0-66.0); PLATELET COUNT, AUTOMATED 321 10^3/uL (150-450); RED BLOOD COUNT 3.58 10^6/uL (4.00-5.40); WHITE BLOOD COUNT 10.1 10^3/uL (4.0-10.0)
[2019-06-07 05:26] LABS: BLOOD UREA NITROGEN 7 MG/DL (7-18); CALCIUM LEVEL 8.2 MG/DL (8.5-10.1); CARBON DIOXIDE LEVEL 27 MEQ/L (21-32); CHLORIDE LEVEL 108 MEQ/L (98-107); CREATININE FOR GFR 0.63 MG/DL (0.55-1.30); GLOMERULAR FILTRATION RATE > 60.0 (>51); GLUCOSE, FASTING 123 MG/DL (70-100); POTASSIUM SERUM 4.4 MEQ/L (3.5-5.1); SODIUM LEVEL 141 MEQ/L (136-145)
[2019-06-07 06:15] LABS: ABG BASE EXCESS 1.5 (-2.0-2.0); ABG HCO3 26.5 MEQ/L (22.0-26.0); ABG O2 SATURATION 98.9 % (95.0-99.0); ABG PARTIAL PRESSURE CO2 43.4 mmHg (35.0-45.0); ABG PARTIAL PRESSURE O2 139.9 mmHg (75.0-100.0); ABG STANDARD HCO3 25.9 MEQ/L (22.0-26.0); ABG TOTAL CO2 27.9 MEQ/L (22.0-29.0); ABG pH (ARTERIAL) 7.404 UNITS (7.350-7.450)
[2019-06-07] MEDS ORDERED: NS 500 ML IV ONE (07:00)
[2019-06-07] MEDS: ONDANSETRON 4MG/2ML VIAL (J2405) IV PRN (07:08)
[2019-06-07] MEDS: DOCUSATE SODIUM 100 MG CAP PO SCH ×2 (08:44→21:00)
[2019-06-07] MEDS: MOM 30ML SUSPENSION UDC PO SCH (08:44)
[2019-06-07] MEDS: PANTOPRAZOLE 40MG TAB (PROTONIX) PO SCH (08:44)
[2019-06-07] MEDS: HEPARIN SOD (PORCINE) 5000 UNITS/ML VIAL SC SCH ×2 (08:45→21:00)
[2019-06-07] MEDS: ceFAZolin SOD 1 GM in D5W MINI-BAG PLUS 50 ML IV SCH ×2 (08:45→17:00)
[2019-06-07] MEDS: NICOTINE 21MG/24HR 1 EA TRANSDERMAL TD SCH (08:46)
--- NOTE | 2019-06-07 08:53 | REP ---
Clinical: Status post left upper lobectomy. Comparison: 06/06/2019. Findings: Two left-sided chest tubes and postsurgical changes involving left hemithorax including small amount of pleural fluid and subcutaneous emphysema again noted and unchanged. Trace right basilar atelectasis cannot be excluded. Mediastinum and cardiac silhouette are normal. Skeletal structures are stable. Impression: Stable chest x-ray. Electronically Signed by Anand Quintero MD 06/07/2019 08:44 A
[2019-06-07] MEDS ORDERED: PANTOPRAZOLE 40MG INJ (PROTONIX) (C9113) IV SCH (09:00)
--- NOTE | 2019-06-07 13:00 | IPN ---
DATE: 06/07/2019 This is now the first postoperative day for Mrs. Viera. She has had a stable night of surgery. This morning when she was getting up to go to x-ray she felt faint and I therefore changed the x-ray from a 2 view to a portable. I also gave her a 500 mL bolus of normal saline. Her pain is being well controlled at the epidural. It is now going at 8 mL/hr. Her vital signs show a T-max of 98.6 with a heart rate that ranges between 84 and 90 in a sinus rhythm, a respirator rate of 16 to 21 without the use of accessory muscles, who is 97% to 92% saturated now on room air. Blood pressure is ranging between 131/62 to 103/52. Her intake and output over the past 24 hours has been recorded as 2335 in and 500 out for a positivity of 1835 mL. She has only put out 285 mL up to midnight, but 775 mL since midnight. She put 250 mL out from her chest tube up until midnight and 305 since midnight. On physical examination, she has the squeaks and crackles consistent with the air leak that is noted in the chest tube on the left side. There was some subcutaneous emphysema over the chest wall. The right lung showed normal vesicular sounds. Percussion notes are full to the diaphragm. Cardiac Exam: Without murmurs, clicks, gallops, or rubs. I cannot feel her PMI. S1, S2 are normal. Abdomen: Soft. Nontender. Bowel sounds are positive, but hypoactive. She has had flatus. There is no hepatomegaly and no costovertebral angle (CVA) tenderness. Extremities: Show no pretibial edema. No calf tenderness. No differential swelling of the upper extremities. Skin: Warm, dry and perfused. Without cyanosis or mottling, including that of the nail beds and knees. Neck: Supple. There is no jugular venous distention. No subcutaneous emphysema. Trachea is midline. Mouth: Shows her mucous membranes to be pink and moist. Lips and commissures are without lesions. There is no thrush. Eyes: Show her pupils to be equal and reactive. Extraocular movements intact. Sclerae nonicteric. Neurologic: Shows II-XII intact along with gross motor and gross sensation intact. Gait is not tested. Psychiatric shows her to be awake, alert, and oriented times three with appropriate mood and affect and conversational. Her white count today is 10.1 with hemoglobin and hematocrit of 11.4 and 35.6 respectively. These are essentially unchanged from yesterday. Platelet count is 121. Differential shows 67% neutrophils, 22% lymphocytes and 8% monocytes. There are no immature forms and no toxic granulations. Her electrolytes are essentially normal with a BUN and creatinine of 7 and 0.63. She continues on Toradol. Glucose is 123 with a calcium of 8.2. Her portable chest x-ray today shows her lung fully expanded to the chest wall. There is subcutaneous emphysema along the lateral chest wall. Chest tubes look to be in good place. Costophrenic angles are sharp. There is obligate volume loss from the lobectomy. IMPRESSION: 1. Adenocarcinoma left upper lobe. 2. Probably at least clinical stage I adenocarcinoma with the final pathology pending. 3. Chronic obstructive pulmonary disease (COPD). 4. Tobacco abuse. PLAN AND DISCUSSION: Because of this dizziness today, I will keep her in the intensive care unit (ICU). She has a small air leak and we will continue the chest tubes on suction. I am rather concerned at my findings yesterday having peeled the tumor off the chest wall, particularly the cupula. There was a small amount of tumor that was on the cupula which I biopsied. I think that was secondary to a residual piece of lung from the dissection. Nonetheless, that was removed and cauterized. It may however upstage her. Will await for final pathology tomorrow. I will not diurese her today.
[2019-06-07] MEDS: FENTANYL/BUPIVACAINE/NACL BAG 250 ML EPIDURAL SCH (14:37)
--- NOTE | 2019-06-07 14:37 | RO ---
DATE OF PROCEDURE: 06/06/2019 PREPROCEDURE DIAGNOSIS: Left upper lobe lung cancer, clinical stage IA. POSTPROCEDURE DIAGNOSIS: Left upper lobe lung cancer, clinical stage IA. PROCEDURE: Left upper lobectomy, extensive lysis of adhesions, mediastinal node lymphadenectomy, rib block and pre and postop bronchoscopy with bronchoalveolar lavage (BAL). SURGEON: Ghassan Courtney MD [employer] AND MOLDING SUPERVISOR: ANESTHESIA: FINDINGS: The initial bronchoscopy revealed increased secretions. These were cleared. She had normal branching tracheobronchial tree and there were no endobronchial lesions. The thoracotomy revealed and extensively densely adherent left upper lobe mass and inflammatory response from her prior pneumonia. A portion of the tumor was into the parietal pleural surface. This was carved off the pleural surface and a biopsy of that tissue proved to be adenocarcinoma. It was marked with two hemoclips. She had a very large AP window node. After taking down the tumor from the chest wall, the remainder of the lobectomy was fairly straightforward. There were five upper lobe pulmonary artery branches. PROCEDURE: Under satisfactory general anesthesia and single lumen tube endotracheal intubation, bronchoscope was placed into the bronchial tree with the above results. Each segment and subsegments were thoroughly inspected. There were no endobronchial lesions. There were copious amounts of secretions which were cleared with suction aspiration. The patient was then turned into the right lateral decubitus position and sterilely prepped and draped in the usual fashion. A posterolateral thoracotomy incision was made. The latissimus dorsi was divided, the serratus anterior was spared. The chest was entered in the fifth intercostal space. There were some flimsy adhesions in the major fissure which were easily removed, however the left upper lobe was densely adherent to the chest wall including the cupula and adjacent to the subclavian artery. This required extensive dissection and removal. It took approximately 1-1/2 hours. The procedure from inferior to anterior, and parts of the dissection were carried out with thoracoscopes. A flap of tissue was noted during the thoracoscopic removal and this was also removed and sent for pathological examination. It turned out to be adenocarcinoma. My clinical impression was that it was just into the parietal pleural which was quite thickened from the inflammatory response. I did not proceed with a formal chest wall resection. The chest wall was biopsied in numerous other placed and it was also negative for tumor. After finally releasing the tumor from the chest wall, the major fissure was entered and the interlobar pulmonary artery was found. There was an increase in inflammatory response around the artery, probably secondary to her preoperative pneumonia. Five branches were eventually dissected out and stapled across with a vascular stapler. The pulmonary vein was then dissected out. increase inflammatory response. Three separate branches of the pulmonary vein were stapled individually. The inferior pulmonary ligament had previously been released and the inferior vein was positively identified. The phrenic was noted and assiduously avoided. This then left the bronchus which was divided by use of a TA 4.8 stapler and amputated. The bronchus was then oversewn with interrupted #3-0 Vicryl sutures. A very large AP window node was then removed in toto and sent for pathological examination by incising the mediastinal pleural over the AP window and dissecting the entire node out. Again, the phrenic nerve was avoided. During the dissection of the tumor off the chest wall, I was very high into the cupula and it was noted that the patient's arms twitched when I used the electrocautery twice. We therefore avoided any more use of electrocautery in that area. A small adhesion was released from the diaphragm from the left lower lobe and the lung allowed to rise in the chest. A five level rib block consisting of Marcaine and Exparel was then instilled. The TISSEEL glue was placed over the staple lines. Before placing the TISSEEL glue, the bronchus was tested in 3 cm of water and was found to be intact. The ribs were reapproximated with use of #1 Prolene figure-of-8 sutures, the latissimus dorsi by use of running #0 Vicryl sutures, and the subcutaneous tissue by use of #3-0 Vicryl suture and the skin by use of #3-0 Monocryl subcuticular sutures. The patient was then turned back to the supine position, reintubated with a single lumen tube and bronchoscopy with bronchoalveolar lavage was undertaken to remove the secretions, particularly in the left lower lobe. The anastomosis looked in tact. The patient tolerated the procedure well and left the operating room in satisfactory condition for the recovery room.
[2019-06-08] VITALS (7 sets, daily range): BP systolic 117–137; BP diastolic 56–74
[2019-06-08] MEDS: ceFAZolin SOD 1 GM in D5W MINI-BAG PLUS 50 ML IV SCH ×2 (01:11→08:55)
[2019-06-08] MEDS: KETOROLAC 30 MG/ML VIAL (J1885) IV SCH ×4 (01:11→21:45)
[2019-06-08] MEDS: LEVALBUTEROL 1.25 MG/0.5 ML CONCENTRATE NEB NEB SCH ×4 (01:35→19:50)
[2019-06-08 05:11] LABS: BASO % 0.2 % (0.0-1.0); EOS # 0.2 10^3/uL (0.0-0.50); EOS % 1.6 % (0.0-3.0); HEMATOCRIT 32.1 % (36.0-47.0); HEMOGLOBIN 10.3 g/dl (12.0-15.5); LYMPH # 2.8 10^3/uL (1.5-4.5); LYMPH % 27.1 % (24.0-44.0); MEAN CORPUSCULAR HEMOGLOBIN 30.9 pg (27.0-33.0); MEAN CORPUSCULAR HGB CONC 32.1 g/dl (32.0-36.5); MEAN CORPUSCULAR VOLUME 96.4 fl (80.0-96.0); MONO # 0.9 10^3/uL (0.0-0.8); MONO % 8.4 % (0.0-5.0); NEUTROPHILS # 6.3 10^3/uL (1.8-7.7); NEUTROPHILS % 62.1 % (36.0-66.0); PLATELET COUNT, AUTOMATED 309 10^3/uL (150-450); RED BLOOD COUNT 3.33 10^6/uL (4.00-5.40); WHITE BLOOD COUNT 10.1 10^3/uL (4.0-10.0)
[2019-06-08 05:25] LABS: BLOOD UREA NITROGEN 8 MG/DL (7-18); CALCIUM LEVEL 8.7 MG/DL (8.5-10.1); CARBON DIOXIDE LEVEL 32 MEQ/L (21-32); CHLORIDE LEVEL 108 MEQ/L (98-107); CREATININE FOR GFR 0.61 MG/DL (0.55-1.30); GLOMERULAR FILTRATION RATE > 60.0 (>51); GLUCOSE, FASTING 101 MG/DL (70-100); POTASSIUM SERUM 4.8 MEQ/L (3.5-5.1); SODIUM LEVEL 140 MEQ/L (136-145)
--- NOTE | 2019-06-08 08:01 | REP ---
Clinical: Status post left upper lobectomy. Technique: PA and lateral. Comparison: 06/07/2019. Findings: Two left-sided chest tubes along with mild left pleural thickening and subcutaneous emphysema are again appreciated and consistent with postsurgical changes. Minimal right basilar atelectasis and possible small right pleural reaction are suspected. Mediastinum and cardiac silhouette are within normal limits and stable. Skeletal structures are stable. Impression: Postsurgical changes similar to prior examination with slightly decreased subcutaneous emphysema. Trace right basilar atelectasis and possible small pleural reaction suggested. Electronically Signed by Anand Quintero MD 06/08/2019 07:52 A
[2019-06-08] MEDS: HEPARIN SOD (PORCINE) 5000 UNITS/ML VIAL SC SCH ×2 (08:54→21:46)
[2019-06-08] MEDS: PANTOPRAZOLE 40MG TAB (PROTONIX) PO SCH (08:55)
[2019-06-08] MEDS: DOCUSATE SODIUM 100 MG CAP PO SCH ×2 (08:55→21:44)
[2019-06-08] MEDS: MOM 30ML SUSPENSION UDC PO SCH (08:55)
[2019-06-08] MEDS: NICOTINE 21MG/24HR 1 EA TRANSDERMAL TD SCH (08:55)
[2019-06-08] MEDS: TRELEGY ELLIPTA INH SCH (13:30)
[2019-06-08] MEDS: FENTANYL/BUPIVACAINE/NACL BAG 250 ML EPIDURAL SCH (14:00)
--- NOTE | 2019-06-08 23:00 | IPN ---
DATE: 06/08/2019 This is now the second postoperative day for Mrs. Viera. Her pain is being well controlled. She has a small air leak. Her pathology was reported back as moderately-differentiated adenocarcinoma. The tumor measures 1.5 cm. All nodes are negative. Her vital signs show a maximum temperature (T max) of 98.8 with a heart rate that ranges between 90 and 77 and is sinus rhythm, respiratory rate that is constant at 18, who is 94% saturated on room air and whose blood pressure is ranging between 127/58 to 117/59. Her intake and output over the past 24 hours has been recorded as 1943 in and 2445 out for a negativity of 300 mL. She has put out 490 mL from the chest tube. Weight is pending today. On physical examination, she has some inspiratory crackles in the left lung with scattered rhonchi. Most clear with coughing. Percussion note is full to the diaphragm. She has some subcutaneous emphysema at the base of the neck. Cardiac exam is without murmurs, clicks, gallops or rubs. I cannot feel her point of maximum impulse (PMI). S1, S2 are normal. Abdomen is soft and nontender. Bowel sounds are positive. There is no hepatomegaly. No costovertebral angle (CVA) tenderness. Extremities show no pretibial edema. No calf tenderness. No differential swelling of the upper extremities. Skin is warm, dry and perfused without cyanosis or mottling, including that of the nail beds and the knees. Neck is supple. There is no jugular venous distention. subcutaneous emphysema. Trachea is midline. Mouth shows her mucous membranes to be pink and moist. Lips and commissures without lesions. There is no thrush. Eyes show her pupils to be equal and reactive. Extraocular motions intact. Sclerae anicteric. Neurologic shows II-XII intact along with gross motor and gross sensation intact. Gait is not tested. Psychiatric shows her to be awake and alert, oriented times three with appropriate mood and affect and conversational. Her white count today is 10.1 with a hemoglobin and hematocrit of 10.3 and 32.1 with a platelet count of 309 and stable. Differential shows 62% neutrophils, 27% lymphocytes, 85 monocytes. There are no immature forms. No toxic granulations. Her electrolytes are essentially normal with a BUN and creatinine of 8 and 0.61, a glucose of 101, and a calcium of 8.7. Her chest x-ray today shows her lung fully expanded to the chest wall. There is a small area of thickening in the cupula secondary to the dissection. Costophrenic angles are sharp. There is obligate volume loss of the left lung from the lobectomy. There is some subcutaneous emphysema along the superolateral chest wall. Lateral chest x-ray shows the chest tube to be in good place. I have gone over the pathology with Dr. Steven. The frozen section that I sent from the cupula in the operating room (OR) was first reported as adenocarcinoma. It turns out that these were inflammatory cells on permanent section. These were consistent with the atypical pneumocyte hyperplasia rather than carcinoma. Other areas in the specimen were identified also as atypical pneumocyte hyperplasia but no invasive tumor. The cavitary lesion of the adenocarcinoma was also positive for Aspergillus, and therefore, represents aspergilloma. The majority of the specimen was consistent with bronchiolitis obliterans organizing pneumonia. IMPRESSION: 1. Stage 1A2 adenocarcinoma left upper lobe, [id number]. 2. Chronic obstructive pulmonary disease (COPD). 3. Aspergilloma. 4. Bronchiolitis obliterans organizing pneumonia. 5. Tobacco abuse. PLAN AND DISCUSSION: I will keep her chest tube on suction today. I have reported the results to the patient. She will, therefore, not need adjuvant chemotherapy. I will not diurese her today.
[2019-06-09] VITALS: BP 115/55
[2019-06-09] MEDS: LEVALBUTEROL 1.25 MG/0.5 ML CONCENTRATE NEB NEB SCH ×4 (01:51→20:37)
[2019-06-09] MEDS: KETOROLAC 30 MG/ML VIAL (J1885) IV SCH ×4 (02:00→20:46)
[2019-06-09 04:00] VITALS: BP 151/78
[2019-06-09 06:44] LABS: BASO % 0.4 % (0.0-1.0); EOS # 0.4 10^3/uL (0.0-0.50); EOS % 4.3 % (0.0-3.0); HEMATOCRIT 33.5 % (36.0-47.0); HEMOGLOBIN 10.8 g/dl (12.0-15.5); LYMPH # 2.4 10^3/uL (1.5-4.5); MEAN CORPUSCULAR HEMOGLOBIN 31.7 pg (27.0-33.0); MEAN CORPUSCULAR HGB CONC 32.2 g/dl (32.0-36.5); MEAN CORPUSCULAR VOLUME 98.2 fl (80.0-96.0); MONO # 0.7 10^3/uL (0.0-0.8); MONO % 8.9 % (0.0-5.0); NEUTROPHILS # 4.5 10^3/uL (1.8-7.7); NEUTROPHILS % 55.7 % (36.0-66.0); PLATELET COUNT, AUTOMATED 278 10^3/uL (150-450); RED BLOOD COUNT 3.41 10^6/uL (4.00-5.40); WHITE BLOOD COUNT 8.1 10^3/uL (4.0-10.0)
[2019-06-09 07:06] LABS: BLOOD UREA NITROGEN 6 MG/DL (7-18); CALCIUM LEVEL 8.7 MG/DL (8.5-10.1); CARBON DIOXIDE LEVEL 30 MEQ/L (21-32); CHLORIDE LEVEL 107 MEQ/L (98-107); CREATININE FOR GFR 0.45 MG/DL (0.55-1.30); GLOMERULAR FILTRATION RATE > 60.0 (>51); GLUCOSE, FASTING 102 MG/DL (70-100); POTASSIUM SERUM 4.2 MEQ/L (3.5-5.1); SODIUM LEVEL 140 MEQ/L (136-145)
[2019-06-09] MEDS: TRELEGY ELLIPTA INH SCH (07:54)
[2019-06-09 08:00] VITALS: BP 135/70
[2019-06-09] MEDS: HEPARIN SOD (PORCINE) 5000 UNITS/ML VIAL SC SCH ×2 (08:30→20:32)
[2019-06-09] MEDS: MOM 30ML SUSPENSION UDC PO SCH (08:31)
[2019-06-09] MEDS: DOCUSATE SODIUM 100 MG CAP PO SCH ×2 (08:31→20:32)
[2019-06-09] MEDS: PANTOPRAZOLE 40MG TAB (PROTONIX) PO SCH (08:31)
[2019-06-09] MEDS: NICOTINE 21MG/24HR 1 EA TRANSDERMAL TD SCH (08:33)
--- NOTE | 2019-06-09 09:59 | REP ---
HISTORY: Followup. Cardiomediastinal silhouette and lung robbins are completely unchanged from yesterday. Two left-sided thoracotomy tubes are also unchanged. There is left-sided subcutaneous emphysema, status quo. There is left apical capping which is unchanged. There are no new abnormal opacities or pleural effusions. There is no change in the osseous structures. IMPRESSION: Stable chest. Electronically Signed by Wilmer Osman DO 06/09/2019 09:10 A
[2019-06-09 12:00] VITALS: BP 124/65
[2019-06-09] MEDS: FENTANYL/BUPIVACAINE/NACL BAG 250 ML EPIDURAL SCH (14:33)
[2019-06-09 16:00] VITALS: BP 126/72
[2019-06-09 20:00] VITALS: BP 137/72
[2019-06-09] MEDS: BISACODYL 10 MG SUPP PR PRN (21:33)
[2019-06-10] VITALS: BP 146/78
[2019-06-10] MEDS: LEVALBUTEROL 1.25 MG/0.5 ML CONCENTRATE NEB NEB SCH ×4 (01:33→20:15)
[2019-06-10] MEDS: KETOROLAC 30 MG/ML VIAL (J1885) IV SCH ×4 (01:44→20:21)
[2019-06-10 04:00] VITALS: BP 156/76
[2019-06-10 04:11] LABS: BASO # 0.1 10^3/uL (0.0-0.2); BASO % 0.9 % (0.0-1.0); EOS # 0.3 10^3/uL (0.0-0.50); EOS % 4.1 % (0.0-3.0); HEMOGLOBIN 11.2 g/dl (12.0-15.5); LYMPH # 2.3 10^3/uL (1.5-4.5); MEAN CORPUSCULAR HEMOGLOBIN 31.5 pg (27.0-33.0); MEAN CORPUSCULAR VOLUME 98.3 fl (80.0-96.0); MONO # 0.7 10^3/uL (0.0-0.8); MONO % 8.2 % (0.0-5.0); NEUTROPHILS # 4.7 10^3/uL (1.8-7.7); NEUTROPHILS % 57.5 % (36.0-66.0); PLATELET COUNT, AUTOMATED 278 10^3/uL (150-450); RED BLOOD COUNT 3.56 10^6/uL (4.00-5.40); WHITE BLOOD COUNT 8.2 10^3/uL (4.0-10.0)
[2019-06-10 04:35] LABS: BLOOD UREA NITROGEN 10 MG/DL (7-18); CALCIUM LEVEL 8.9 MG/DL (8.5-10.1); CARBON DIOXIDE LEVEL 29 MEQ/L (21-32); CHLORIDE LEVEL 107 MEQ/L (98-107); CREATININE FOR GFR 0.48 MG/DL (0.55-1.30); GLOMERULAR FILTRATION RATE > 60.0 (>51); GLUCOSE, FASTING 108 MG/DL (70-100); POTASSIUM SERUM 4.3 MEQ/L (3.5-5.1); SODIUM LEVEL 141 MEQ/L (136-145)
[2019-06-10 08:00] VITALS: BP 159/75
[2019-06-10] MEDS: TRELEGY ELLIPTA INH SCH (08:15)
[2019-06-10] MEDS: NICOTINE 14 MG/24 HR TRANSDERMAL TD SCH (08:17)
[2019-06-10] MEDS: MOM 30ML SUSPENSION UDC PO SCH (08:17)
[2019-06-10] MEDS: BISACODYL 10 MG SUPP PR PRN (08:17)
[2019-06-10] MEDS: PANTOPRAZOLE 40MG TAB (PROTONIX) PO SCH (08:18)
[2019-06-10] MEDS: DOCUSATE SODIUM 100 MG CAP PO SCH ×2 (08:18→20:21)
[2019-06-10] MEDS: HEPARIN SOD (PORCINE) 5000 UNITS/ML VIAL SC SCH ×2 (08:18→20:22)
--- NOTE | 2019-06-10 10:10 | REP ---
HISTORY: Followup. COMPARISON: Yesterday. Left-sided thoracotomy tube, status quo. Cardiomediastinal silhouette, status quo. Lung field opacity, status quo. Left-sided subcutaneous emphysema, status quo. Osseous structures, status quo. Left apical capping, status quo. IMPRESSION: No new abnormalities. Stable chest. Electronically Signed by Wilmer Osman DO 06/10/2019 10:11 A
[2019-06-10 12:00] VITALS: BP 124/74
[2019-06-10] MEDS: NORCO, ANEXSIA 5/325MG TABLET (HYDROcodone/ACETAMINOPHEN) PO PRN ×3 (12:46→21:52)
--- NOTE | 2019-06-10 13:33 | IPN ---
DATE: 06/09/2019 This is now the third postoperative day for Mrs. Viera. Her pain is being well controlled with the epidural. She no longer has the air leak. I discussed her pathology yesterday her having stage IA2 disease. Her vital signs show a maximum temperature (Tmax) of 98.7 with a heart rate that ranges between 71-78 in sinus rhythm, respiratory rate of 18-20 without the use of accessory muscles. who is 92-97% saturated on room air and whose blood pressure is ranging between 151/78-115/55. Her intake and output for the past 24 hours has been recorded as 1590 in and 2040 out for a negativity of 450 mL. She has put out 140 mL from the chest tube and there is no air leak. Her weight is 75.7 kg compared to 76 kg on 06/07/2019. On physical examination, she has normal vesicular sounds on the right side and some scattered rhonchi and rales most of which clear with coughing on the left side. Percussion note is full to the diaphragm. Cardiac exam is without murmurs, clicks, gallops, or rubs. I cannot feel her point of maximum impulse (PMI). S1, S2 are normal. Abdomen is soft, nontender. Bowel sounds are positive. There is no hepatomegaly. No costovertebral angle (CVA) tenderness. She has not yet had a bowel movement. Extremities show no pretibial edema. No calf tenderness. No differential swelling of the upper extremities. Skin is warm, dry, and perfused without cyanosis or mottling, including that of the nail beds and the knees. Neck is supple. There is no jugular venous distention. Although, there is some subcutaneous emphysema at the base of the neck on the left side. Trachea is midline. Mouth shows her mucous membranes to be pink and moist. Lips and commissures without lesions. There is no thrush. Eyes show her pupils to be equal and reactive. Extraocular motions intact. Sclerae anicteric. Neurologic shows II-XII intact, along with gross motor and gross sensation intact and gait is not tested. Psychiatric shows her to be awake and alert, oriented times three with appropriate mood and affect and conversational. Her white count today is 8.1 with hemoglobin and hematocrit of 10.8 and 35.5 respectively. Platelet count is 278 and stable. Differential shows 68% neutrophils, 30% lymphocytes, and 8 monocytes. There are no immature forms. No toxic granulations. Her electrolytes are normal with a BUN and creatinine of 6 and 0.45, glucose of 102 and a calcium of 8.7. Her chest x-ray today shows her lung fully expanded to the chest wall. There is some pleural thickening at the cupula. Chest tube is in good place. Costophrenic angles are sharp. I seen no infiltrates. IMPRESSION: 1. Stage IA2 adenocarcinoma left upper lobe, [id number]. 2. Chronic obstructive pulmonary disease (COPD). 3. Aspergilloma. 4. Bronchiolitis obliterans organizing pneumonia. 5. Tobacco abuse. PLAN AND DISCUSSION: I will discontinue her chest tube suction today. I will not diurese her as she looks to be somewhat spontaneously diuresing and her chest tube output is down. Hopefully tomorrow I will be able to discontinue chest tubes and wean the epidural for possible discharge on Tuesday.
--- NOTE | 2019-06-10 14:13 | IPN ---
DATE: 06/10/2019 This is now the fourth postoperative day for Mrs. Viera. She is doing quite well and her pain is being well controlled with the epidural. There is no air leak and I will remove her tubes today. Her vital signs show a maximum temperature (Tmax) of 98.2 with a heart rate that ranges between 72-87 in sinus rhythm, respiratory rate of 13-20 without the use of accessory muscles, who is 94-96% saturated on room air and whose blood pressure is ranging between 159/75-146/78. Her intake and output for the past 24 hours has been recorded as 1896 in and 2054 out for a negativity of 159 mL. She has put out 135 mL out the chest tube. She weights 76.2 kg compared to 75.7 kg yesterday. On physical examination, she has nearly normal vesicular sounds on both right and left sides. Percussion note is full to the diaphragm. Cardiac exam is without murmurs, clicks, gallops, or rubs. I cannot feel her point of maximum impulse (PMI). S1, S2 are normal. Abdomen is soft, nontender. Bowel sounds are positive. There is no hepatomegaly. No costovertebral angle (CVA) tenderness. She has had a bowel movement and her abdomen is much softer. Extremities show no pretibial edema. No calf tenderness. No differential swelling of the upper extremities. Skin is warm, dry, and perfused without cyanosis or mottling, including that of the nail beds and the knees. Neck is supple. There is no jugular venous distention. No subcutaneous emphysema. Trachea is midline. Mouth shows her mucous membranes to be pink and moist. Lips and commissures without lesions. There is no thrush. Eyes show her pupils to be equal and reactive. Extraocular motions intact. Sclerae anicteric. Neurologic shows II-XII intact, along with gross motor and gross sensation intact. Gait is not tested. Psychiatric shows her to be awake and alert, oriented times three with appropriate mood and affect and conversational. Her white count today is 8.2 with hemoglobin and hematocrit of 11.2 and 35.0, up from 10.8 and 33.5 yesterday. Platelet count is 278 and stable, and differential shows 57% neutrophils, 28% lymphocytes, 8 monocytes. There are no immature forms. No toxic granulations. Electrolytes are normal with a BUN and creatinine of 10 and 0.48, with a glucose of 108 and a calcium of 8.9. Her chest x-ray today shows her lung fully expanded to the chest wall. Costophrenic angles are sharp. Subcutaneous emphysema is dissipating more. There is still a lot of pleural thickening in the cupula in the lateral upper chest wall secondary to dissection. Lateral chest x-ray shows no infiltrates. IMPRESSION: 1. Postoperative day #4 status post left upper lobe lobectomy. 2. Stage IA2 adenocarcinoma left upper lobe, [id number]. 3. Chronic obstructive pulmonary disease (COPD). 4. Aspergilloma. 5. Bronchiolitis obliterans organizing pneumonia. 6. Tobacco abuse. PLAN AND DISCUSSION: I will discontinue her chest tubes today. We will wean the epidural and discontinue the Kirkpatrick. During the wean, will give her oral by mouth pain medications. If all goes well, I will discharge tomorrow. Again, will not diurese her today.
[2019-06-10 16:00] VITALS: BP 141/67
[2019-06-10] MEDS: FENTANYL/BUPIVACAINE/NACL BAG 250 ML EPIDURAL SCH (16:00)
[2019-06-10 20:00] VITALS: BP 141/82
[2019-06-11] VITALS: BP 129/60
[2019-06-11] MEDS: LEVALBUTEROL 1.25 MG/0.5 ML CONCENTRATE NEB NEB SCH ×2 (01:25→09:12)
[2019-06-11] MEDS: KETOROLAC 30 MG/ML VIAL (J1885) IV SCH ×2 (01:41→08:27)
[2019-06-11] MEDS: NORCO, ANEXSIA 5/325MG TABLET (HYDROcodone/ACETAMINOPHEN) PO PRN ×3 (01:42→10:38)
[2019-06-11 04:00] VITALS: BP 129/60
[2019-06-11 04:37] LABS: BASO % 0.6 % (0.0-1.0); EOS # 0.4 10^3/uL (0.0-0.50); EOS % 5.7 % (0.0-3.0); HEMATOCRIT 33.2 % (36.0-47.0); HEMOGLOBIN 10.9 g/dl (12.0-15.5); LYMPH # 2.5 10^3/uL (1.5-4.5); LYMPH % 35.9 % (24.0-44.0); MEAN CORPUSCULAR HEMOGLOBIN 31.8 pg (27.0-33.0); MEAN CORPUSCULAR HGB CONC 32.8 g/dl (32.0-36.5); MEAN CORPUSCULAR VOLUME 96.8 fl (80.0-96.0); MONO # 0.7 10^3/uL (0.0-0.8); MONO % 9.9 % (0.0-5.0); NEUTROPHILS # 3.2 10^3/uL (1.8-7.7); NEUTROPHILS % 46.2 % (36.0-66.0); PLATELET COUNT, AUTOMATED 294 10^3/uL (150-450); RED BLOOD COUNT 3.43 10^6/uL (4.00-5.40)
[2019-06-11 05:02] LABS: BLOOD UREA NITROGEN 11 MG/DL (7-18); CALCIUM LEVEL 9.2 MG/DL (8.5-10.1); CARBON DIOXIDE LEVEL 30 MEQ/L (21-32); CHLORIDE LEVEL 106 MEQ/L (98-107); CREATININE FOR GFR 0.58 MG/DL (0.55-1.30); GLOMERULAR FILTRATION RATE > 60.0 (>51); GLUCOSE, FASTING 106 MG/DL (70-100); POTASSIUM SERUM 4.4 MEQ/L (3.5-5.1); SODIUM LEVEL 142 MEQ/L (136-145)
[2019-06-11 08:00] VITALS: BP 145/75
[2019-06-11] MEDS: NICOTINE 14 MG/24 HR TRANSDERMAL TD SCH (08:26)
[2019-06-11] MEDS: PANTOPRAZOLE 40MG TAB (PROTONIX) PO SCH (08:27)
[2019-06-11] MEDS: HEPARIN SOD (PORCINE) 5000 UNITS/ML VIAL SC SCH (08:27)
[2019-06-11] MEDS: MOM 30ML SUSPENSION UDC PO SCH (08:27)
[2019-06-11] MEDS: DOCUSATE SODIUM 100 MG CAP PO SCH (08:27)
--- NOTE | 2019-06-11 09:01 | REP ---
Chest x-ray: Two views: History: Status post left upper lobectomy. Comparison chest x-ray: June 10, 2019. Findings: In the interval since the June 10 study, the two left chest tubes have been removed. There is some residual extrathoracic air and some left upper thoracic pleural thickening is again seen unchanged. There is no visible pneumothorax. Postoperative volume loss as seen on the left with clips in the left apex. The right lung is unchanged. Right hemidiaphragm is slightly elevated as well. Lateral radiograph shows a small air-fluid level in the pleural space anteriorly on the left. Electronically Signed by Davey Waite MD 06/11/2019 04:45 P
[2019-06-11] MEDS: TRELEGY ELLIPTA INH SCH (09:12)
[2019-06-11 12:00] VITALS: BP 156/74
[2019-06-11] MEDS ORDERED: HYDR-4571 PO (12:15)
--- NOTE | 2019-06-12 10:44 | DSES ---
DATE OF ADMISSION: 06/06/2019 DATE OF DISCHARGE: 06/11/2019 DISCHARGE DIAGNOSES: Pathological stage IA2 adenocarcinoma of the left upper lobe, [id number]. Chronic obstructive pulmonary disease (COPD). Aspergilloma. Bronchiolitis obliterans organizing pneumonia. Tobacco abuse. HOSPITAL COURSE: Patient is a 58-year-old white female who was first noted to have a left upper lobe lesion when this past December she was seen in the emergency room with breast tenderness, which turned out to be a breast abscess. She underwent an early detection lung cancer screening as she was a prior smoker and was found to have the upper lobe lesion, which was biopsied and was shown to be adenocarcinoma. She was reticent to undertake surgery at that time and sought radiation therapy consultation. After undergoing that consultation, she decided to undertake surgery, but then developed a fever of 102 with what looked to be a pneumonia. She was treated with two courses of antibiotics with symptomatic clearing, but not x-ray clearing. She was then taken to the operating room where she underwent a left upper lobectomy. The left upper lobectomy was notable for the difficulty in carving the inflammatory mass of pneumonia off the chest wall. In fact, during the procedure a portion of chest wall, which was suspicious was biopsied prior to re-excising it. This was reported back on frozen section as adenocarcinoma, but on permanent section was found to be merely inflammatory. Considering the length of the operation, approximately 4 hours, she had a very benign postoperative course with her air leak sealing in the first three postoperative days. She ambulated and was almost pain free from her epidural. She is now only requiring hydrocodone acetaminophen for occasional pain control. It should be noted that not only was that portion of the chest wall biopsied, there were also three other biopsies taken of the chest wall, all of which were benign. The tumor measured only 1.5 cm and was surrounded by pneumonia and bronchiolitis obliterans organizing pneumonia. She is being discharged today on her home medications which include: - ProAir two puffs every 4-6 hours as needed for wheezing - vitamin D 5000 units daily - Trelegy Ellipta 100-62-25 one puff daily - nicotine patch 14 mg daily - She is also being placed on hydrocodone acetaminophen 5/325 mg every 4 hours as needed for pain Her discharge hemoglobin and hematocrit are 10.9 and 33.2 with a discharge white count of 7.0. Discharge electrolytes are normal with a BUN and creatinine of 11 and 0.58. She will return to see me in one week with a chest x-ray in postoperative follow-up. Her wounds are clean and dry and healing well. Her chest x-ray shows her lung fully expanded to the chest wall, but on the lateral film there is a small air fluid level with some fluid anteriorly from where the lung has not gotten all the way to the anterior chest wall. There is also a small amount of fluid in the cupula where the lung has not reached the chest wall. The costophrenic angles are sharp.
== END 2019-06-11 13:25 | disposition home or self-care (01) | DRG 120 ==
LOC: M SDC 06:49 → M ICU 14:05
PROVIDERS: ADMIT Thoracic Surgery (Cardiothoracic Vascular Surgery); ATTEND Thoracic Surgery (Cardiothoracic Vascular Surgery)
PROC: 0BNG0ZZ Release Left Upper Lung Lobe, Open Approach (ICD-10-PCS; 2019-06-06)
PROC: 07B70ZX Excision of Thorax Lymphatic, Open Approach, Diagnostic (ICD-10-PCS; 2019-06-06)
PROC: 0B9J8ZX Drainage of Left Lower Lung Lobe, Via Natural or Artificial Opening Endoscopic, Diagnostic (ICD-10-PCS; 2019-06-06)
PROC: 0BTG0ZZ Resection of Left Upper Lung Lobe, Open Approach (ICD-10-PCS; principal; 2019-06-06 08:30)
DX: C34.12 Malignant neoplasm of upper lobe, left bronchus or lung (principal); B44.9 Aspergillosis, unspecified; J84.89 Other specified interstitial pulmonary diseases; J44.9 Chronic obstructive pulmonary disease, unspecified; Z87.891 Personal history of nicotine dependence

== ENCOUNTER → 2019-06-18 | Outpatient (CLI) | payer BC ==
[~2019-06-18] MED LIST changes: +HYDR-4571 PO; -LR 1,000 ML IV ONE; -MUPIROCIN 2% OINT 22 GM TUBE TOP ONE
--- NOTE | 2019-06-18 09:26 | REP ---
PA and lateral chest: The patient is status post left upper lobectomy. Comparison is 06/11/2019. There are two surgical clips in the apex of the left hemithorax, unchanged. There is pleural thickening in the apex of the left hemithorax, unchanged. There is no pneumothorax. There is slight effacement of the left costophrenic angle which could represent pleural adhesion or small left pleural effusion or postsurgical change. . This is unchanged. Right lung is clear and unchanged. Cardiac size is normal. The subcutaneous emphysema noted along the left lateral chest wall previously has resolved. The air-fluid level noted anteriorly on the prior lateral view has resolved. Impression: The air-fluid level noted anteriorly on the previous lateral view has resolved. There is no other significant interval change. Electronically Signed by Mahamed Bhagat MD 06/18/2019 09:18 A
== END ==
LOC: M SMT 08:12
PROVIDERS: ATTEND Thoracic Surgery (Cardiothoracic Vascular Surgery)
DX: C34.12 Malignant neoplasm of upper lobe, left bronchus or lung (principal)

== ENCOUNTER → 2019-07-09 | Outpatient (CLI) | payer BC ==
--- NOTE | 2019-07-09 12:22 | REP ---
Chest x-ray: Two views. History: Malignant neoplasm of the upper lobe. Comparison chest x-ray: June 18, 2019. Findings: The patient is status post left thoracotomy and partial pneumonectomy. There are clips in the left apex and some apical pleural thickening which is unchanged. Left hemidiaphragm is very slightly elevated and tented as before. The previously visible pleural air fluid level posteriorly in the left chest has resolved. There is area of pleural thickening in the paravertebral region on the left. This is superimposed on the left mediastinum on the frontal view. No infiltrate is seen. The right lung remains clear. Impression: Post thoracotomy partial pneumonectomy changes on the left. Elongate area of pleural thickening in the left paravertebral region consistent with postoperative fluid and/or thickening. Electronically Signed by Davey Waite MD 07/09/2019 09:25 A
== END ==
LOC: M SMT 08:10
PROVIDERS: ATTEND Thoracic Surgery (Cardiothoracic Vascular Surgery)
DX: Z90.2 Acquired absence of lung [part of] (principal)

== ENCOUNTER → 2019-08-23 | Outpatient (CLI) | payer BC ==
--- NOTE | 2019-08-23 09:39 | REP ---
Two-view chest: 08/23/2019. Indication: Lung carcinoma. Comparison: 07/09/2019. Findings: Left-sided postoperative sequelae including partial pneumonectomy are redemonstrated. The previously described pleural thickening medially is slightly less conspicuous. There is no pulmonary air space consolidation. There is no pleural effusion or pneumothorax. Impression: Clear lungs. Postoperative sequelae. Electronically Signed by Poli Wilson DO 08/23/2019 09:30 A
== END ==
LOC: M SMT 08:06
PROVIDERS: ATTEND Thoracic Surgery (Cardiothoracic Vascular Surgery)
DX: Z48.3 Aftercare following surgery for neoplasm (principal); Z90.2 Acquired absence of lung [part of]

== ENCOUNTER → 2019-08-27 | Outpatient (REF) | payer BC ==
[2019-08-27 12:28] LABS: BASO # 0.1 10^3/uL (0.0-0.2); BASO % 0.7 % (0.0-1.0); EOS # 0.1 10^3/uL (0.0-0.5); EOS % 1.3 % (0.0-3.0); HEMATOCRIT 43.3 % (36.0-47.0); HEMOGLOBIN 14.4 g/dl (12.0-15.5); LYMPH # 2.4 10^3/uL (1.5-5.0); MEAN CORPUSCULAR HEMOGLOBIN 31.5 pg (27.0-33.0); MEAN CORPUSCULAR HGB CONC 33.3 g/dl (32.0-36.5); MEAN CORPUSCULAR VOLUME 94.7 fl (80.0-96.0); MONO # 0.8 10^3/uL (0.0-0.8); MONO % 11.4 % (0.0-5.0); NEUTROPHILS # 3.8 10^3/uL (1.5-8.5); NEUTROPHILS % 52.9 % (36.0-66.0); PLATELET COUNT, AUTOMATED 304 10^3/uL (150-450); RED BLOOD COUNT 4.57 10^6/uL (4.00-5.40); WHITE BLOOD COUNT 7.1 10^3/uL (4.0-10.0)
[2019-08-27 12:49] LABS: ALBUMIN 3.8 GM/DL (3.2-5.2); ALT/SGPT 24 U/L (12-78); BILIRUBIN,TOTAL 0.4 MG/DL (0.2-1.0); BLOOD UREA NITROGEN 7 MG/DL (7-18); CALCIUM LEVEL 9.1 MG/DL (8.5-10.1); CARBON DIOXIDE LEVEL 27 MEQ/L (21-32); CHLORIDE LEVEL 107 MEQ/L (98-107); CHOLESTEROL LEVEL 202 MG/DL (<200); CHOLESTEROL RISK RATIO 2.172 (<5); FREE T4 1.09 NG/DL (0.76-1.46); GLOMERULAR FILTRATION RATE > 60.0 (>51); GLUCOSE, FASTING 101 MG/DL (70-100); HDL CHOLESTEROL 93 MG/DL (>40); LDL CHOLESTEROL 98 MG/DL (<100); NON-HDL-C 109 MG/DL; POTASSIUM SERUM 4.4 MEQ/L (3.5-5.1); SODIUM LEVEL 140 MEQ/L (136-145); THYROID STIMULATING HORMONE 0.956 uIU/ML (0.358-3.740); TOTAL 25(OH) VITAMIN D 49.7 NG/ML (30.0-100.0); TOTAL PROTEIN 6.8 GM/DL (6.4-8.2); TRIGLYCERIDES LEVEL 56 MG/DL (<150)
[2019-08-27 12:51] LABS: HEMOGLOBIN A1c 5.8 %
== END ==
LOC: M SFHCPLAZ 09:01
PROVIDERS: ATTEND Nurse Practitioner Family
DX: R73.01 Impaired fasting glucose (principal); R53.1 Weakness; E55.9 Vitamin D deficiency, unspecified

== ENCOUNTER → 2020-03-10 | Outpatient (CLI) | payer BC ==
--- NOTE | 2020-03-13 06:56 | REP ---
Clinical: Malignancy. Comparison: 05/15/2019. Technique: Axial noncontrast images from the thoracic inlet to the upper abdomen with coronal and sagittal re-formations. Findings: Evidence for prior left upper lobectomy noted. There is a 3 mm noncalcified nodule in the anterior portion of the right lower lobe (image 69) which remains stable through 01/24/2019. Few small presumed early calcified nodules measuring up to 2 mm are also identified and stable. No further acute consolidation, significant nodule or mass lesion. No pleural effusion. No pneumothorax. Minimal basilar scarring is identified. No obvious adenopathy. Mediastinum demonstrates early atherosclerotic changes to the thoracic aorta without aneurysm. No cardiomegaly or pericardial effusion. Surrounding musculoskeletal structures intact without acute osseous abnormality. Limited upper abdomen demonstrates normal bilateral adrenal glands. Impression: 1. Prior left upper lobectomy. No obvious evidence for recurrence. 2. Few scattered nodules measuring up to 3 mm (anterior right lower lobe) remains stable compared through 01/24/2019 and no new consolidation, nodule or mass lesion is appreciated. 3. No obvious acute mediastinal or pleuroparenchymal process noted. Electronically Signed by Anand Quintero MD 03/13/2020 06:48 A
== END ==
LOC: M RAD 13:41
PROVIDERS: ATTEND Internal Medicine Pulmonary Disease
DX: C34.12 Malignant neoplasm of upper lobe, left bronchus or lung (principal); Z90.2 Acquired absence of lung [part of]

== ENCOUNTER → 2020-03-14 | Outpatient (CLI) | payer BC ==
--- NOTE | 2020-03-14 12:26 | REPMRS ---
Patient History The patient states she had a clinical breast exam in February 2020.Family history of breast cancer in maternal aunt. Benign US guided breast biopsy of the left breast, February 09, 2019. Digital Woman Screen Mammo: March 14, 2020 - Exam #: [id number] Bilateral CC and MLO view(s) were taken. Technologist: Parul Barr, Technologist Prior study comparison: January 26, 2019, digital mammo diagnostic bilateral, performed at [facility]. August 09, 2014, bilateral digital woman screen mammo, performed at [facility]. FINDINGS: There are scattered fibroglandular densities. The Volpara volumetric breast density category is:B. There is a needle biopsy marker clip in the anterior third upper outer quadrant left breast. There has been no change in the appearance of the mammogram from the prior studies. There is a mild amount of scattered fibroglandular density which is fairly symmetric. There is no interval development of dominant mass, architectural distortion, or grouped microcalcification suggestive of malignancy. 3-D tomosynthesis shows no additional findings. Assessment: BI-RADS/ACR category 2 mammogram. Benign Findings. Recommendation Routine screening mammogram of both breasts in 1 year (for women over age 40). This patient's Lifetime Breast Cancer Risk is estimated at 8.9 %. This mammogram was interpreted with the aid of an FDA-approved computer-aided dectection system. Electronically Signed By: Suresh Waite MD 03/14/20 [id number]
== END ==
LOC: M WHC 10:31
PROVIDERS: ATTEND Nurse Practitioner Family
DX: Z12.31 Encounter for screening mammogram for malignant neoplasm of breast (principal)

== ENCOUNTER → 2020-04-28 | Outpatient (REF) | payer BC ==
[2020-04-28 11:12] LABS: ALBUMIN 3.8 GM/DL (3.2-5.2); ALT/SGPT 23 U/L (12-78); BILIRUBIN,TOTAL 0.3 MG/DL (0.2-1.0); BLOOD UREA NITROGEN 18 MG/DL (7-18); CALCIUM LEVEL 9.8 MG/DL (8.5-10.1); CARBON DIOXIDE LEVEL 26 MEQ/L (21-32); CHLORIDE LEVEL 111 MEQ/L (98-107); CHOLESTEROL LEVEL 226 MG/DL (<200); CHOLESTEROL RISK RATIO 2.935 (<5); CREATININE FOR GFR 0.82 MG/DL (0.55-1.30); GLOMERULAR FILTRATION RATE > 60.0 (>51); GLUCOSE, FASTING 100 MG/DL (70-100); HDL CHOLESTEROL 77 MG/DL (>40); LDL CHOLESTEROL 137 MG/DL (<100); NON-HDL-C 149 MG/DL; POTASSIUM SERUM 5.2 MEQ/L (3.5-5.1); SODIUM LEVEL 144 MEQ/L (136-145); TOTAL PROTEIN 6.8 GM/DL (6.4-8.2); TRIGLYCERIDES LEVEL 60 MG/DL (<150)
[2020-04-28 11:14] LABS: TOTAL 25(OH) VITAMIN D 68.4 NG/ML (30.0-100.0)
== END ==
LOC: M PLALAB 07:52
PROVIDERS: ATTEND Nurse Practitioner Family
DX: Z13.220 Encounter for screening for lipoid disorders (principal); R73.01 Impaired fasting glucose; E55.9 Vitamin D deficiency, unspecified

== ENCOUNTER → 2020-09-23 | Outpatient (CLI) | payer OTHER ==
--- NOTE | 2020-09-23 16:58 | REP ---
INDICATION: MAL NEW OF UPPER LOBE LT LUNG. COMPARISON: 03/10/2020. TECHNIQUE: CT chest performed without the use of intravenous contrast. Sagittal and coronal reconstruction images are performed. FINDINGS: Lungs: There is a stable nodular opacity in the right apex 7 mm in diameter. A 3 mm nodular opacity in the right upper lobe on image 26 is new. Small linear density just inferior to that in the anterior right upper lobe is stable on image 27. Calcified granuloma is again seen inferiorly in the right upper lobe. There is a nodular opacity in the right lower lobe on image 69 which is stable, 5 mm in diameter. There has been a prior left upper lobectomy. The remaining left lung there is a lateral calcified granuloma on image 50. No other tiny calcified granuloma is seen more inferiorly in the left lung laterally. Scattered interstitial fibrotic changes bilaterally are stable. Mediastinum: No gross adenopathy. Osiris: No gross adenopathy. There are small calcified lymph nodes in the left hilum. Axilla: No gross adenopathy. Pleura: No effusion. Heart: Not enlarged. Thoracic aorta: No aneurysm. Upper abdominal structures: There is a small hiatal hernia. Visualized osseous structures: There are mild degenerative changes of the spine without compression deformity. There is a right thyroid nodule with peripheral rim calcifications which is stable. IMPRESSION: Stable CT of the chest compared to 03/10/2020, except for a new 3 mm nodular opacity in the right upper lobe on image 26. Few other right lung nodules are stable. No new adenopathy. <Electronically signed by Mahamed Farris > 09/23/20 [id number]
== END ==
LOC: M RAD 16:23
PROVIDERS: ATTEND Internal Medicine Pulmonary Disease
DX: C34.12 Malignant neoplasm of upper lobe, left bronchus or lung (principal)

== ENCOUNTER → 2021-03-31 | Outpatient (CLI) | payer OTHER ==
[~2021-03-31] MED LIST changes: +ISOVUE-370 76% 100ML VIAL As Ordered ONE
--- NOTE | 2021-03-31 08:59 | REP ---
INDICATION: MAL NEW OF UPPER LT LOBE LUNG COMPARISON: 09/23/2020 TECHNIQUE: Axial contrast enhanced images from the thoracic inlet to the upper abdomen with coronal and sagittal reformations using 75 ml Isovue 370 intravenous contrast material. This CT examination was performed using the following dose reduction techniques: Automated exposure control, adjustment of mA and/or kv according to the patient's size, and use of iterative reconstruction technique. FINDINGS: Patient is again noted to be status post left upper lobectomy. Bilateral lung robbins are well aerated. There is a small 3 mm noncalcified nodular density in the anterior right upper lobe (series 201; image 24) which remains stable along with 6 mm noncalcified nodule in the right lower lobe (image 59) which remains stable compared through 05/15/2019. Linear scarring at the lingula is slightly progressive. The 1-2 mm calcified densities are stable and consistent with prior granulomatous disease. No significant acute consolidation, new nodule or mass. No effusion. No pneumothorax. Tracheobronchial tree is patent. Mediastinum demonstrates normal thoracic aorta, pulmonary vasculature, and heart/pericardium. No obvious adenopathy. Limited upper abdomen demonstrates normal bilateral adrenal glands and stable 2 cm left renal cyst. IMPRESSION: 1. Relatively stable postsurgical changes and few scattered calcified and noncalcified nodules as compared to prior examinations. No new acute mediastinal or pleuroparenchymal process appreciated. <Electronically signed by Anand Quintero > 03/31/21 [id number]
== END ==
LOC: M RAD 08:24
PROVIDERS: ATTEND Internal Medicine Pulmonary Disease
DX: C34.12 Malignant neoplasm of upper lobe, left bronchus or lung (principal)
CPT/HCPCS: 71260; Q9967

== ENCOUNTER → 2021-04-10 | Outpatient (REF) | payer OTHER ==
[~2021-04-10] MED LIST changes: -ISOVUE-370 76% 100ML VIAL As Ordered ONE
[2021-04-10 13:03] LABS: ALBUMIN 3.7 GM/DL (3.2-5.2); ALT/SGPT 23 U/L (12-78); BILIRUBIN,TOTAL 0.3 MG/DL (0.2-1.0); BLOOD UREA NITROGEN 13 MG/DL (7-18); CALCIUM LEVEL 9.1 MG/DL (8.5-10.1); CARBON DIOXIDE LEVEL 29 MEQ/L (21-32); CHLORIDE LEVEL 108 MEQ/L (98-107); CHOLESTEROL LEVEL 231 MG/DL (<200); CHOLESTEROL RISK RATIO 3.164 (<5); CREATININE FOR GFR 0.77 MG/DL (0.55-1.30); GLOMERULAR FILTRATION RATE > 60.0 (>51); GLUCOSE, FASTING 110 MG/DL (70-100); HDL CHOLESTEROL 73 MG/DL (>40); LDL CHOLESTEROL 145 MG/DL (<100); NON-HDL-C 158 MG/DL; POTASSIUM SERUM 5.6 MEQ/L (3.5-5.1); SODIUM LEVEL 141 MEQ/L (136-145); TOTAL PROTEIN 6.8 GM/DL (6.4-8.2); TRIGLYCERIDES LEVEL 66 MG/DL (<150)
[2021-04-10 13:04] LABS: TOTAL 25(OH) VITAMIN D 36.8 NG/ML (30.0-100.0)
[2021-04-10 21:23] LABS: HEMOGLOBIN A1c 5.7 %
== END ==
LOC: M SFHCPLAZ 08:08
PROVIDERS: ATTEND Nurse Practitioner Family
DX: E78.5 Hyperlipidemia, unspecified (principal); R73.01 Impaired fasting glucose; E55.9 Vitamin D deficiency, unspecified

== ENCOUNTER → 2021-04-23 | Outpatient (CLI) | payer OTHER ==
--- NOTE | 2021-04-23 08:49 | REPMRS ---
Patient History The patient states she has not had a clinical breast exam in over a year. Patient is postmenopausal and has history of lung cancer at age 58. Family history of breast cancer in maternal aunt. Benign US guided breast biopsy of the left breast, February 09, 2019. Patient states no breast complaints today. Patient has signed MRS History Sheet. Digital Woman Screen Mammo: April 23, 2021 - Exam #: [id number] Bilateral CC and MLO view(s) were taken. Technologist: RT Yvrose Prior study comparison: March 14, 2020, bilateral digital woman screen mammo performed at [facility]. January 26, 2019, digital mammo diagnostic bilateral, performed at [facility]. August 09, 2014, bilateral digital woman screen mammo, performed at [facility]. FINDINGS: There are scattered fibroglandular densities. The Volpara volumetric breast density category is:B. There is a needle biopsy marker clip noted in the left breast. There has been no change in the appearance of the mammogram from the prior studies. There is a mild amount of scattered fibroglandular density which is fairly symmetric. There is no interval development of dominant mass, architectural distortion, or grouped microcalcification suggestive of malignancy. 3-D tomosynthesis shows no additional findings. Assessment: BI-RADS/ACR category 2 mammogram. Benign Findings. Recommendation Routine screening mammogram of both breasts in 1 year (for women over age 40). This patient's [facility] Lifetime Breast Cancer Risk is estimated at 8.7 %. This mammogram was interpreted with the aid of an FDA-approved computer-aided dectection system. Electronically Signed By: Suresh Waite MD 04/23/21 0849
== END ==
LOC: M WHC 06:53
PROVIDERS: ATTEND Nurse Practitioner Family
DX: Z12.31 Encounter for screening mammogram for malignant neoplasm of breast (principal)

== ENCOUNTER → 2021-04-24 | Outpatient (REF) | payer OTHER ==
[2021-04-24 14:11] LABS: BLOOD UREA NITROGEN 13 MG/DL (7-18); CALCIUM LEVEL 9.3 MG/DL (8.5-10.1); CARBON DIOXIDE LEVEL 28 MEQ/L (21-32); CHLORIDE LEVEL 106 MEQ/L (98-107); CREATININE FOR GFR 0.82 MG/DL (0.55-1.30); GLOMERULAR FILTRATION RATE > 60.0 (>51); GLUCOSE, FASTING 97 MG/DL (70-100); PHOSPHORUS LEVEL 3.9 MG/DL (2.5-4.9); POTASSIUM SERUM 5.3 MEQ/L (3.5-5.1); SODIUM LEVEL 138 MEQ/L (136-145)
== END ==
LOC: M PLALAB 09:16
PROVIDERS: ATTEND Nurse Practitioner Family
DX: E87.5 Hyperkalemia (principal)

== ENCOUNTER → 2021-06-17 | Outpatient (CLI) | payer OTHER ==
[~2021-06-17] MED LIST changes: +ATOR1TAB19; +BREO1INH3; +D31000TA2 PO; +FLUT1BLS8; +INCR1INH
== END ==
LOC: M LABSMTC 10:31
PROVIDERS: ATTEND Anesthesiology
DX: Z01.812 Encounter for preprocedural laboratory examination (principal); Z11.52 Encounter for screening for COVID-19

== ENCOUNTER 2021-06-22 09:41 | Day surgery (SDC) | payer OTHER ==
[~2021-06-22] VITALS: Ht 174 cm; Wt 93.6 kg
[~2021-06-22 09:41] MED LIST changes: +NS 1,000 ML IV ONE
[2021-06-22] MEDS ORDERED: LIDOCAINE 2% 100MG/5ML SDV (FOR ANES.) As Ordered ONE (11:36)
[2021-06-22] MEDS ORDERED: propofoL 200 MG/20 ML VIAL As Ordered ONE (11:36)
--- NOTE | 2021-06-22 11:49 | ROOR ---
Patient Name: Loree Viera Procedure Date: 06/22/2021 11:12 AM Date of : 1960 Age: 60 Room: [facility] Gender: Female Note Status: Finalized Procedure: Colonoscopy Indications: High risk colon cancer surveillance: Personal history of colonic polyps, Last colonoscopy: February 2019 Providers: Marcelo Antonio MD Referring MD: Melvi Malone Requesting Provider: Medicines: Monitored Anesthesia Care Complications: No immediate complications. Procedure: Pre-Anesthesia Assessment: - The heart rate, respiratory rate, oxygen saturations, blood pressure, adequacy of pulmonary ventilation, and response to care were monitored throughout the procedure. The Colonoscope was introduced through the anus and advanced to the terminal ileum, with identification of the appendiceal orifice and IC valve. The colonoscopy was performed without difficulty. The patient tolerated the procedure well. The quality of the bowel preparation was good. Findings: The perianal and digital rectal examinations were normal. Four sessile polyps were found in the descending colon and ascending colon. The polyps were diminutive in size. These polyps were removed with a cold snare. Resection and retrieval were complete. A few small-mouthed diverticula were found in the sigmoid colon. Internal hemorrhoids were found during retroflexion. The hemorrhoids were medium-sized. The exam was otherwise without abnormality on direct and retroflexion views. Impression: - Four diminutive polyps in the descending colon and in the ascending colon, removed with a cold snare. Resected and retrieved. - Diverticulosis in the sigmoid colon. - Internal hemorrhoids. - The examination was otherwise normal on direct and retroflexion views. Recommendation: - Repeat colonoscopy in 3 years for surveillance. Procedure Code(s): --- Professional --- 39634, Colonoscopy, flexible; with removal of tumor(s), polyp(s), or other lesion(s) by snare technique Diagnosis Code(s): --- Professional --- K57.30, Diverticulosis of large intestine without perforation or abscess without bleeding K64.8, Other hemorrhoids K63.5, Polyp of colon Z86.010, Personal history of colonic polyps CPT copyright 2019 [employer] [place] [employer]. All rights reserved. The codes documented in this report are preliminary and upon core fitter review may be revised to meet current compliance requirements. Marcelo Antonio MD Marcelo Antonio MD 06/22/2021 11:49:15 AM Electronically signed by Marcelo Antonio MD Number of Addenda: 0 Note Initiated On: 06/22/2021 11:12 AM Estimated Blood Loss: Estimated blood loss: none.
[2021-06-22 12:12] VITALS: BP 196/83
== END 2021-06-22 12:25 | disposition home or self-care (01) ==
LOC: M OPP 09:41
PROVIDERS: ATTEND Internal Medicine Gastroenterology
DX: Z12.11 Encounter for screening for malignant neoplasm of colon (principal); Z86.010 Personal history of colon polyps; K63.5 Polyp of colon; K57.30 Diverticulosis of large intestine without perforation or abscess without bleeding; K64.8 Other hemorrhoids; Z79.899 Other long term (current) drug therapy; Z80.1 Family history of malignant neoplasm of trachea, bronchus and lung; Z80.3 Family history of malignant neoplasm of breast

== ENCOUNTER → 2021-10-12 | Outpatient (CLI) | payer OTHER ==
[~2021-10-12] MED LIST changes: -NS 1,000 ML IV ONE
[2021-10-12 11:23] LABS: BASO # 0.1 10^3/uL (0.0-0.2); BASO % 0.6 % (0.0-1.0); EOS # 0.1 10^3/uL (0.0-0.5); EOS % 1.7 % (0.0-3.0); HEMATOCRIT 42.9 % (36.0-47.0); HEMOGLOBIN 13.8 g/dl (12.0-15.5); LYMPH # 2.2 10^3/uL (1.5-5.0); LYMPH % 26.1 % (24.0-44.0); MEAN CORPUSCULAR HEMOGLOBIN 30.7 pg (27.0-33.0); MEAN CORPUSCULAR HGB CONC 32.2 g/dl (32.0-36.5); MEAN CORPUSCULAR VOLUME 95.3 fl (80.0-96.0); MONO % 11.5 % (2.0-8.0); NEUTROPHILS % 59.3 % (36.0-66.0); PLATELET COUNT, AUTOMATED 286 10^3/uL (150-450); WHITE BLOOD COUNT 8.4 10^3/uL (4.0-10.0)
[2021-10-12 12:00] LABS: HEMOGLOBIN A1c 5.6 %
[2021-10-12 12:02] LABS: ALT/SGPT 37 U/L (12-78); BILIRUBIN,TOTAL 0.3 MG/DL (0.2-1.0); BLOOD UREA NITROGEN 13 MG/DL (7-18); CALCIUM LEVEL 9.7 MG/DL (8.8-10.2); CARBON DIOXIDE LEVEL 28 MEQ/L (21-32); CHLORIDE LEVEL 109 MEQ/L (98-107); CHOLESTEROL LEVEL 158 MG/DL (<200); CHOLESTEROL RISK RATIO 2.135 (<5); CREATININE FOR GFR 0.63 MG/DL (0.55-1.30); GLOMERULAR FILTRATION RATE > 60.0 (>45); GLUCOSE, FASTING 106 MG/DL (70-100); HDL CHOLESTEROL 74 MG/DL (>40); LDL CHOLESTEROL 75 MG/DL (<100); NON-HDL-C 84 MG/DL; SODIUM LEVEL 142 MEQ/L (136-145); TOTAL PROTEIN 6.9 GM/DL (6.4-8.2); TRIGLYCERIDES LEVEL 46 MG/DL (<150)
[2021-10-12 12:05] LABS: TOTAL 25(OH) VITAMIN D 36.1 NG/ML (30.0-100.0)
== END ==
LOC: M PLALAB 08:49
PROVIDERS: ATTEND Nurse Practitioner Family
DX: E78.5 Hyperlipidemia, unspecified (principal); R73.01 Impaired fasting glucose; E55.9 Vitamin D deficiency, unspecified; F32.9 Major depressive disorder, single episode, unspecified

== ENCOUNTER → 2022-03-19 | Outpatient (CLI) | payer OTHER ==
[~2022-03-19] MED LIST changes: -D31000TA2 PO; +VITA100093 PO
== END ==
LOC: M RAD 08:17
PROVIDERS: ATTEND Internal Medicine Pulmonary Disease
DX: C34.90 Malignant neoplasm of unspecified part of unspecified bronchus or lung (principal)

== ENCOUNTER → 2022-04-14 | Outpatient (REF) | payer OTHER | LOC: M LAB REF 16:52 | PROVIDERS: ATTEND Internal Medicine Pulmonary Disease | DX: R91.8 Other nonspecific abnormal finding of lung field (principal) ==

== ENCOUNTER → 2022-04-14 | Outpatient (CLI) | payer OTHER ==
[2022-04-14 10:44] LABS: BASO % 0.5 % (0.0-1.0); EOS # 0.1 10^3/uL (0.0-0.5); EOS % 1.5 % (0.0-3.0); HEMATOCRIT 43.5 % (36.0-47.0); HEMOGLOBIN 14.3 g/dl (12.0-15.5); LYMPH # 1.9 10^3/uL (1.5-5.0); MEAN CORPUSCULAR HEMOGLOBIN 30.6 pg (27.0-33.0); MEAN CORPUSCULAR HGB CONC 32.9 g/dl (32.0-36.5); MEAN CORPUSCULAR VOLUME 92.9 fl (80.0-96.0); MONO # 0.8 10^3/uL (0.0-0.8); MONO % 10.4 % (2.0-8.0); NEUTROPHILS # 4.5 10^3/uL (1.5-8.5); NEUTROPHILS % 60.8 % (36.0-66.0); PLATELET COUNT, AUTOMATED 288 10^3/uL (150-450); RED BLOOD COUNT 4.68 10^6/uL (4.00-5.40); WHITE BLOOD COUNT 7.4 10^3/uL (4.0-10.0)
[2022-04-14 10:51] LABS: ALBUMIN 3.9 GM/DL (3.2-5.2); ALT/SGPT 30 U/L (12-78); BILIRUBIN,TOTAL 0.4 MG/DL (0.2-1.0); BLOOD UREA NITROGEN 21 MG/DL (7-18); CALCIUM LEVEL 9.9 MG/DL (8.8-10.2); CARBON DIOXIDE LEVEL 25 MEQ/L (21-32); CHLORIDE LEVEL 113 MEQ/L (98-107); CHOLESTEROL LEVEL 179 MG/DL (<200); CHOLESTEROL RISK RATIO 1.967 (<5); CREATININE FOR GFR 0.83 MG/DL (0.55-1.30); GLOMERULAR FILTRATION RATE > 60.0 (>45); GLUCOSE, FASTING 106 MG/DL (70-100); HDL CHOLESTEROL 91 MG/DL (>40); LDL CHOLESTEROL 78 MG/DL (<100); NON-HDL-C 88 MG/DL; POTASSIUM SERUM 4.7 MEQ/L (3.5-5.1); SODIUM LEVEL 145 MEQ/L (136-145); TRIGLYCERIDES LEVEL 52 MG/DL (<150)
[2022-04-14 10:59] LABS: TOTAL 25(OH) VITAMIN D 27.6 NG/ML (30.0-100.0)
[2022-04-14 11:07] LABS: HEMOGLOBIN A1c 5.8 %
== END ==
LOC: M PLALAB 08:35
PROVIDERS: ATTEND Nurse Practitioner Family
DX: E87.5 Hyperkalemia (principal); R73.01 Impaired fasting glucose; F32.9 Major depressive disorder, single episode, unspecified; E55.9 Vitamin D deficiency, unspecified

== ENCOUNTER → 2022-04-20 | Outpatient (CLI) | payer OTHER | LOC: M CARPUL 14:33 | PROVIDERS: ATTEND Internal Medicine Pulmonary Disease | DX: R91.8 Other nonspecific abnormal finding of lung field (principal) ==

== ENCOUNTER → 2022-04-28 | Outpatient (CLI) | payer OTHER | LOC: M RAD 07:46 | PROVIDERS: ATTEND Internal Medicine Pulmonary Disease | DX: R91.8 Other nonspecific abnormal finding of lung field (principal) ==

== ENCOUNTER → 2022-05-10 | Outpatient (CLI) | payer OTHER | LOC: M PLARAD 11:51 | PROVIDERS: ATTEND Internal Medicine Pulmonary Disease | DX: R91.8 Other nonspecific abnormal finding of lung field (principal) | CPT/HCPCS: 78815; A9552 ==

== ENCOUNTER → 2022-05-17 | Outpatient (CLI) | payer OTHER | LOC: M WHC 07:45 | PROVIDERS: ATTEND Nurse Practitioner Family | DX: Z12.31 Encounter for screening mammogram for malignant neoplasm of breast (principal) ==

== ENCOUNTER → 2022-10-11 | Outpatient (CLI) | payer OTHER ==
[~2022-10-11] MED LIST changes: +LEVO1TAB40 PO; -LEVO750T13 PO
[2022-10-11 10:32] LABS: BASO % 0.5 % (0.0-1.0); EOS # 0.1 10^3/uL (0.0-0.5); EOS % 1.4 % (0.0-3.0); HEMATOCRIT 43.7 % (36.0-47.0); HEMOGLOBIN 14.3 g/dl (12.0-15.5); LYMPH # 1.8 10^3/uL (1.5-5.0); LYMPH % 22.8 % (24.0-44.0); MEAN CORPUSCULAR HEMOGLOBIN 30.7 pg (27.0-33.0); MEAN CORPUSCULAR HGB CONC 32.7 g/dl (32.0-36.5); MEAN CORPUSCULAR VOLUME 93.8 fl (80.0-96.0); MONO # 0.8 10^3/uL (0.0-0.8); MONO % 10.8 % (2.0-8.0); NEUTROPHILS # 4.9 10^3/uL (1.5-8.5); NEUTROPHILS % 63.6 % (36.0-66.0); PLATELET COUNT, AUTOMATED 279 10^3/uL (150-450); RED BLOOD COUNT 4.66 10^6/uL (4.00-5.40); WHITE BLOOD COUNT 7.8 10^3/uL (4.0-10.0)
[2022-10-11 11:09] LABS: THYROID STIMULATING HORMONE 2.179 uIU/ML (0.55-4.78); TOTAL 25(OH) VITAMIN D 32.3 NG/ML (20.0-100.0)
[2022-10-11 11:12] LABS: ALBUMIN 4.1 G/DL (3.2-5.2); ALKALINE PHOSPHATASE 82 U/L (46-116); ALT/SGPT 30 U/L (7.0-40); AST/SGOT 20 U/L (<34); BILIRUBIN,TOTAL 0.5 MG/DL (0.3-1.2); BLOOD UREA NITROGEN 18 MG/DL (9-23); CALCIUM LEVEL 9.5 MG/DL (8.3-10.6); CARBON DIOXIDE LEVEL 25 MMOL/L (20-31); CHLORIDE LEVEL 108 MMOL/L (98-107); CHOLESTEROL LEVEL 165 MG/DL (<200); CHOLESTEROL RISK RATIO 2.25 (<5); CREATININE FOR GFR 0.73 MG/DL (0.55-1.30); GLOMERULAR FILTRATION RATE > 60.0 (>45); GLUCOSE, FASTING 111 MG/DL (74-106); HDL CHOLESTEROL 73.2 MG/DL (>40); LDL CHOLESTEROL 73.4 MG/DL (<100); NON-HDL-C 92 MG/DL; POTASSIUM SERUM 4.5 MMOL/L (3.5-5.1); SODIUM LEVEL 142 MMOL/L (136-145); TOTAL PROTEIN 6.8 G/DL (5.7-8.2); TRIGLYCERIDES LEVEL 92 MG/DL (<150)
[2022-10-11 11:34] LABS: HEMOGLOBIN A1c 5.5 % (4.0-6.0)
== END ==
LOC: M PLALAB 07:03
PROVIDERS: ATTEND Nurse Practitioner Family
DX: E55.9 Vitamin D deficiency, unspecified (principal); E78.5 Hyperlipidemia, unspecified; F32.9 Major depressive disorder, single episode, unspecified; R73.01 Impaired fasting glucose

== ENCOUNTER → 2023-04-01 | Outpatient (CLI) | payer OTHER ==
[2023-04-01 10:45] LABS: BASO % 0.4 % (0.0-1.0); EOS # 0.1 10^3/uL (0.0-0.5); EOS % 1.7 % (0.0-3.0); HEMATOCRIT 42.6 % (36.0-47.0); LYMPH # 1.9 10^3/uL (1.5-5.0); LYMPH % 24.6 % (24.0-44.0); MEAN CORPUSCULAR HEMOGLOBIN 31.3 pg (27.0-33.0); MEAN CORPUSCULAR HGB CONC 32.9 g/dl (32.0-36.5); MEAN CORPUSCULAR VOLUME 95.1 fl (80.0-96.0); MONO # 0.8 10^3/uL (0.0-0.8); MONO % 10.8 % (2.0-8.0); NEUTROPHILS # 4.8 10^3/uL (1.5-8.5); PLATELET COUNT, AUTOMATED 254 10^3/uL (150-450); RED BLOOD COUNT 4.48 10^6/uL (4.00-5.40); WHITE BLOOD COUNT 7.7 10^3/uL (4.0-10.0)
[2023-04-01 10:57] LABS: HEMOGLOBIN A1c 5.7 % (4.0-6.0)
[2023-04-01 11:26] LABS: ALKALINE PHOSPHATASE 77 U/L (46-116); ALT/SGPT 27 U/L (7.0-40); AST/SGOT 17 U/L (<34); BILIRUBIN,TOTAL 0.5 MG/DL (0.3-1.2); BLOOD UREA NITROGEN 21 MG/DL (9-23); CALCIUM LEVEL 9.5 MG/DL (8.3-10.6); CARBON DIOXIDE LEVEL 25 MMOL/L (20-31); CHLORIDE LEVEL 111 MMOL/L (98-107); CHOLESTEROL LEVEL 159 MG/DL (<200); CHOLESTEROL RISK RATIO 2.25 (<5); CREATININE FOR GFR 0.87 MG/DL (0.55-1.30); GLOMERULAR FILTRATION RATE > 60.0 (>45); GLUCOSE, FASTING 95 MG/DL (74-106); HDL CHOLESTEROL 70.4 MG/DL (>40); NON-HDL-C 88.6 MG/DL; POTASSIUM SERUM 5.2 MMOL/L (3.5-5.1); SODIUM LEVEL 145 MMOL/L (136-145); TOTAL PROTEIN 6.4 G/DL (5.7-8.2); TRIGLYCERIDES LEVEL 63 MG/DL (<150)
[2023-04-01 11:30] LABS: TOTAL 25(OH) VITAMIN D 40.4 NG/ML (20.0-100.0)
== END ==
LOC: M PLALAB 06:58
PROVIDERS: ATTEND Nurse Practitioner Family
DX: E78.5 Hyperlipidemia, unspecified (principal)

== ENCOUNTER → 2023-06-02 | Outpatient (CLI) | payer OTHER | LOC: M CARPUL 09:16 | PROVIDERS: ATTEND Nurse Practitioner Family | DX: R06.02 Shortness of breath (principal) ==

== ENCOUNTER → 2023-06-10 | Outpatient (CLI) | payer OTHER | LOC: M WHC 08:32 | PROVIDERS: ATTEND Nurse Practitioner Family | DX: Z12.39 Encounter for other screening for malignant neoplasm of breast (principal) ==

== ENCOUNTER → 2023-07-06 | Outpatient (CLI) | payer OTHER | LOC: M RAD 07:10 | PROVIDERS: ATTEND Internal Medicine Pulmonary Disease | DX: Z85.118 Personal history of other malignant neoplasm of bronchus and lung (principal) ==

== ENCOUNTER → 2023-09-30 | Outpatient (CLI) | payer OTHER ==
[2023-09-30 11:54] LABS: BASO # 0.1 10^3/uL (0.0-0.2); BASO % 0.7 % (0.0-1.0); EOS # 0.1 10^3/uL (0.0-0.5); EOS % 1.4 % (0.0-3.0); HEMOGLOBIN 14.7 g/dl (12.0-15.5); LYMPH # 1.9 10^3/uL (1.5-5.0); LYMPH % 22.1 % (24.0-44.0); MEAN CORPUSCULAR HEMOGLOBIN 30.9 pg (27.0-33.0); MEAN CORPUSCULAR HGB CONC 32.7 g/dl (32.0-36.5); MEAN CORPUSCULAR VOLUME 94.7 fl (80.0-96.0); MONO # 0.9 10^3/uL (0.0-0.8); MONO % 9.7 % (2.0-8.0); NEUTROPHILS # 5.7 10^3/uL (1.5-8.5); NEUTROPHILS % 65.3 % (36.0-66.0); PLATELET COUNT, AUTOMATED 292 10^3/uL (150-450); RED BLOOD COUNT 4.75 10^6/uL (4.00-5.40); WHITE BLOOD COUNT 8.8 10^3/uL (4.0-10.0)
[2023-09-30 12:04] LABS: ALBUMIN 3.9 G/DL (3.2-5.2); ALKALINE PHOSPHATASE 71 U/L (46-116); ALT/SGPT 30 U/L (7.0-40); AST/SGOT 23 U/L (<34); BILIRUBIN,TOTAL 0.5 MG/DL (0.3-1.2); BLOOD UREA NITROGEN 14 MG/DL (9-23); CALCIUM LEVEL 9.6 MG/DL (8.3-10.6); CARBON DIOXIDE LEVEL 30 MMOL/L (20-31); CHLORIDE LEVEL 107 MMOL/L (98-107); CHOLESTEROL LEVEL 154 MG/DL (<200); CHOLESTEROL RISK RATIO 2.28 (<5); CREATININE FOR GFR 0.74 MG/DL (0.55-1.30); FREE T4 1.28 NG/DL (0.89-1.76); GLOMERULAR FILTRATION RATE > 60.0 (>45); GLUCOSE, FASTING 98 MG/DL (74-106); HDL CHOLESTEROL 67.5 MG/DL (>40); LDL CHOLESTEROL 74.5 MG/DL (<100); NON-HDL-C 86.5 MG/DL; POTASSIUM SERUM 4.9 MMOL/L (3.5-5.1); SODIUM LEVEL 142 MMOL/L (136-145); THYROID STIMULATING HORMONE 1.473 uIU/ML (0.55-4.78); TOTAL 25(OH) VITAMIN D 65.1 NG/ML (20.0-100.0); TOTAL PROTEIN 6.6 G/DL (5.7-8.2); TRIGLYCERIDES LEVEL 60 MG/DL (<150)
[2023-09-30 12:10] LABS: HEMOGLOBIN A1c 5.7 % (4.0-6.0)
== END ==
LOC: M PLALAB 07:07
PROVIDERS: ATTEND Nurse Practitioner Family
DX: R06.02 Shortness of breath (principal); R73.01 Impaired fasting glucose; E55.9 Vitamin D deficiency, unspecified; E78.5 Hyperlipidemia, unspecified

== ENCOUNTER → 2024-03-30 | Outpatient (CLI) | payer MEDICARE ==
[2024-03-30 12:10] LABS: BASO % 0.3 % (0.0-1.0); EOS # 0.1 10^3/uL (0.0-0.5); EOS % 1.5 % (0.0-3.0); HEMATOCRIT 42.7 % (36.0-47.0); HEMOGLOBIN 14.2 g/dl (12.0-15.5); LYMPH # 1.8 10^3/uL (1.5-5.0); LYMPH % 20.9 % (24.0-44.0); MEAN CORPUSCULAR HEMOGLOBIN 31.6 pg (27.0-33.0); MEAN CORPUSCULAR HGB CONC 33.3 g/dl (32.0-36.5); MEAN CORPUSCULAR VOLUME 95.1 fl (80.0-96.0); MONO # 0.9 10^3/uL (0.0-0.8); MONO % 9.9 % (2.0-8.0); NEUTROPHILS # 5.8 10^3/uL (1.5-8.5); NEUTROPHILS % 66.6 % (36.0-66.0); PLATELET COUNT, AUTOMATED 288 10^3/uL (150-450); RED BLOOD COUNT 4.49 10^6/uL (4.00-5.40); WHITE BLOOD COUNT 8.7 10^3/uL (4.0-10.0)
[2024-03-30 12:15] LABS: ALBUMIN 3.7 G/DL (3.2-5.2); ALKALINE PHOSPHATASE 70 U/L (46-116); ALT/SGPT 33 U/L (7.0-40); AST/SGOT 15 U/L (<34); BILIRUBIN,TOTAL 0.5 MG/DL (0.3-1.2); BLOOD UREA NITROGEN 15 MG/DL (9-23); CALCIUM LEVEL 10.1 MG/DL (8.3-10.6); CARBON DIOXIDE LEVEL 29 MMOL/L (20-31); CHLORIDE LEVEL 106 MMOL/L (98-107); CHOLESTEROL LEVEL 150 MG/DL (<200); CHOLESTEROL RISK RATIO 2.36 (<5); CREATININE FOR GFR 0.75 MG/DL (0.55-1.30); GLOMERULAR FILTRATION RATE > 60.0 (>45); GLUCOSE, FASTING 103 MG/DL (74-106); HDL CHOLESTEROL 63.4 MG/DL (>40); LDL CHOLESTEROL 71.2 MG/DL (<100); NON-HDL-C 86.6 MG/DL; POTASSIUM SERUM 4.4 MMOL/L (3.5-5.1); SODIUM LEVEL 143 MMOL/L (136-145); TOTAL PROTEIN 6.3 G/DL (5.7-8.2); TRIGLYCERIDES LEVEL 77 MG/DL (<150)
[2024-03-30 12:17] LABS: TOTAL 25(OH) VITAMIN D 73.2 NG/ML (20.0-100.0)
[2024-03-30 12:34] LABS: HEMOGLOBIN A1c 5.7 % (4.0-6.0)
== END ==
LOC: M PLALAB 07:48
PROVIDERS: ATTEND Nurse Practitioner Family
DX: E78.5 Hyperlipidemia, unspecified (principal); E55.9 Vitamin D deficiency, unspecified; R73.01 Impaired fasting glucose; I10 Essential (primary) hypertension

== ENCOUNTER → 2024-06-15 | Outpatient (CLI) | payer MEDICARE | LOC: M WHC 08:01 | PROVIDERS: ATTEND Nurse Practitioner Family | DX: Z12.31 Encounter for screening mammogram for malignant neoplasm of breast (principal); R92.323 Mammographic fibroglandular density, bilateral breasts ==

== ENCOUNTER → 2024-07-30 | Outpatient (CLI) | payer MEDICARE | LOC: M PLAIMG 07:41 | PROVIDERS: ATTEND Internal Medicine Pulmonary Disease | DX: Z85.118 Personal history of other malignant neoplasm of bronchus and lung (principal); I70.0 Atherosclerosis of aorta; E04.1 Nontoxic single thyroid nodule; Z90.2 Acquired absence of lung [part of]; R91.8 Other nonspecific abnormal finding of lung field ==

== ENCOUNTER → 2024-10-01 | Outpatient (CLI) | payer MEDICARE ==
[2024-10-01 10:37] LABS: BASO % 0.4 % (0.0-1.0); EOS # 0.1 10^3/uL (0.0-0.5); EOS % 1.5 % (0.0-3.0); HEMATOCRIT 42.5 % (36.0-47.0); LYMPH # 1.7 10^3/uL (1.5-5.0); LYMPH % 23.3 % (24.0-44.0); MEAN CORPUSCULAR HEMOGLOBIN 30.6 pg (27.0-33.0); MEAN CORPUSCULAR HGB CONC 32.9 g/dl (32.0-36.5); MONO # 0.8 10^3/uL (0.0-0.8); MONO % 11.2 % (2.0-8.0); NEUTROPHILS # 4.6 10^3/uL (1.5-8.5); PLATELET COUNT, AUTOMATED 284 10^3/uL (150-450); RED BLOOD COUNT 4.57 10^6/uL (4.00-5.40); WHITE BLOOD COUNT 7.3 10^3/uL (4.0-10.0)
[2024-10-01 11:19] LABS: HEMOGLOBIN A1c 5.8 % (4.0-6.0)
[2024-10-01 11:22] LABS: ALBUMIN 3.6 G/DL (3.2-5.2); ALKALINE PHOSPHATASE 78 U/L (35-104); ALT/SGPT 27 U/L (7.0-40); AST/SGOT 16 U/L (<34); BILIRUBIN,TOTAL 0.4 MG/DL (0.3-1.2); BLOOD UREA NITROGEN 14 MG/DL (9-23); CARBON DIOXIDE LEVEL 29 MMOL/L (20-31); CHLORIDE LEVEL 108 MMOL/L (98-107); CHOLESTEROL LEVEL 181 MG/DL (<200); CREATININE FOR GFR 0.81 MG/DL (0.55-1.30); FREE T4 1.35 NG/DL (0.89-1.76); GLOMERULAR FILTRATION RATE > 60.0 (>45); GLUCOSE, FASTING 116 MG/DL (74-106); HDL CHOLESTEROL 69.6 MG/DL (>40); LDL CHOLESTEROL 93.2 MG/DL (<100); NON-HDL-C 111.4 MG/DL; POTASSIUM SERUM 4.4 MMOL/L (3.5-5.1); SODIUM LEVEL 142 MMOL/L (136-145); THYROID STIMULATING HORMONE 1.476 uIU/ML (0.55-4.78); TOTAL PROTEIN 6.6 G/DL (5.7-8.2); TRIGLYCERIDES LEVEL 91 MG/DL (<150)
== END ==
LOC: M PLALAB 07:33
PROVIDERS: ATTEND Nurse Practitioner Family
DX: I10 Essential (primary) hypertension (principal); R73.01 Impaired fasting glucose; E55.9 Vitamin D deficiency, unspecified; E78.5 Hyperlipidemia, unspecified

== ENCOUNTER → 2024-10-12 | Outpatient (CLI) | payer MEDICARE ==
[2024-10-12 09:41] LABS: BASO % 0.5 % (0.0-1.0); EOS # 0.1 10^3/uL (0.0-0.5); EOS % 1.4 % (0.0-3.0); HEMATOCRIT 42.5 % (36.0-47.0); HEMOGLOBIN 14.2 g/dl (12.0-15.5); LYMPH # 2.1 10^3/uL (1.5-5.0); LYMPH % 23.5 % (24.0-44.0); MEAN CORPUSCULAR HEMOGLOBIN 30.6 pg (27.0-33.0); MEAN CORPUSCULAR HGB CONC 33.4 g/dl (32.0-36.5); MEAN CORPUSCULAR VOLUME 91.6 fl (80.0-96.0); MONO # 0.8 10^3/uL (0.0-0.8); MONO % 9.5 % (2.0-8.0); NEUTROPHILS # 5.6 10^3/uL (1.5-8.5); NEUTROPHILS % 64.4 % (36.0-66.0); PLATELET COUNT, AUTOMATED 300 10^3/uL (150-450); RED BLOOD COUNT 4.64 10^6/uL (4.00-5.40); WHITE BLOOD COUNT 8.7 10^3/uL (4.0-10.0)
[2024-10-12 10:03] LABS: URIC ACID 7.8 MG/DL (3.1-7.8)
[2024-10-12 10:06] LABS: ALBUMIN 3.7 G/DL (3.2-5.2); ALKALINE PHOSPHATASE 75 U/L (35-104); ALT/SGPT 33 U/L (7.0-40); AST/SGOT 21 U/L (<34); BILIRUBIN,TOTAL 0.4 MG/DL (0.3-1.2); BLOOD UREA NITROGEN 16 MG/DL (9-23); C REACTIVE PROTEIN QUANTITATIV 0.51 MG/DL (<1.0); CARBON DIOXIDE LEVEL 26 MMOL/L (20-31); CHLORIDE LEVEL 106 MMOL/L (98-107); CHOLESTEROL LEVEL 176 MG/DL (<200); CHOLESTEROL RISK RATIO 2.42 (<5); CREATININE FOR GFR 0.74 MG/DL (0.55-1.30); GLOMERULAR FILTRATION RATE > 60.0 (>45); GLUCOSE, FASTING 107 MG/DL (74-106); HDL CHOLESTEROL 72.7 MG/DL (>40); LDL CHOLESTEROL 85.3 MG/DL (<100); NON-HDL-C 103.3 MG/DL; POTASSIUM SERUM 4.4 MMOL/L (3.5-5.1); SODIUM LEVEL 142 MMOL/L (136-145); TOTAL PROTEIN 6.7 G/DL (5.7-8.2); TRIGLYCERIDES LEVEL 90 MG/DL (<150)
[2024-10-12 10:21] LABS: HEMOGLOBIN A1c 5.8 % (4.0-6.0)
== END ==
LOC: M PLALAB 08:27
PROVIDERS: ATTEND Nurse Practitioner Family
DX: M79.641 Pain in right hand (principal); E55.9 Vitamin D deficiency, unspecified; I10 Essential (primary) hypertension; R73.01 Impaired fasting glucose; E78.5 Hyperlipidemia, unspecified

== ENCOUNTER → 2025-06-21 | Outpatient (CLI) | payer MEDICARE | LOC: M WHC 06:56 | PROVIDERS: ATTEND Nurse Practitioner Family | DX: Z12.31 Encounter for screening mammogram for malignant neoplasm of breast (principal) ==

== ENCOUNTER → 2025-08-16 | Day surgery (SDC) | payer MEDICARE ==
[~2025-08-16] VITALS: Ht 172.7 cm; Wt 91.4 kg
[~2025-08-16] MED LIST changes: +AMLO1TAB24 PO; +BUDE10.7 IH; +CHLO125TA PO; +ECOT81TA5 PO; +KRIL1000 PO; +LIDOCAINE 2% 100 MG/5 ML SDV (FOR ANES.) As Ordered ONE; +MAGN400C PO
[2025-08-16 11:04] VITALS: TEMP 97.6
[2025-08-16 11:25] VITALS: BP 164/82; O2SAT 97
== END | disposition home or self-care (01) ==
LOC: M OPP 09:26
PROVIDERS: ATTEND Surgery
DX: D12.6 Benign neoplasm of colon, unspecified (principal); K64.8 Other hemorrhoids; K64.4 Residual hemorrhoidal skin tags; Z86.0100 Personal history of colon polyps, unspecified; Z79.82 Long term (current) use of aspirin; Z79.899 Other long term (current) drug therapy; J44.9 Chronic obstructive pulmonary disease, unspecified; Z87.891 Personal history of nicotine dependence

== ENCOUNTER → 2025-09-10 | Outpatient (CLI) | payer MEDICARE ==
[~2025-09-10] MED LIST changes: -LIDOCAINE 2% 100 MG/5 ML SDV (FOR ANES.) As Ordered ONE
== END ==
LOC: M RAD 06:53
PROVIDERS: ATTEND Internal Medicine Pulmonary Disease
DX: Z87.891 Personal history of nicotine dependence (principal)

== ENCOUNTER → 2025-09-30 | Outpatient (CLI) | payer MEDICARE ==
[2025-09-30 10:31] LABS: ALT/SGPT 38 U/L (7.0-40); AST/SGOT 30 U/L (<34); BASO # 0.0 10^3/uL (0.0-0.2); BASO % 0.5 % (0.0-1.0); CALCIUM LEVEL 9.4 MG/DL (8.3-10.6); CARBON DIOXIDE LEVEL 29 MMOL/L (20-31); CHLORIDE LEVEL 102 MMOL/L (98-107); CHOLESTEROL LEVEL 165 MG/DL (<200); CHOLESTEROL RISK RATIO 2.50 (<5); CREATININE FOR GFR 0.71 MG/DL (0.55-1.30); EOS # 0.2 10^3/uL (0.0-0.5); EOS % 2.1 % (0.0-3.0); FREE T4 1.43 NG/DL (0.89-1.76); GLOMERULAR FILTRATION RATE > 90.0 (>45); LDL CHOLESTEROL 83.6 MG/DL (<100); LYMPH # 1.8 10^3/uL (1.5-5.0); LYMPH % 23.0 % (24.0-44.0); MAGNESIUM LEVEL 1.7 MG/DL (1.8-2.4); MONO # 0.9 10^3/uL (0.0-0.8); MONO % 11.2 % (2.0-8.0); NEUTROPHILS # 5.0 10^3/uL (1.5-8.5); NEUTROPHILS % 62.6 % (36.0-66.0); NON-HDL-C 99.2 MG/DL; PLATELET COUNT, AUTOMATED 325 10^3/uL (150-450); POTASSIUM SERUM 4.3 MMOL/L (3.5-5.1); SODIUM LEVEL 142 MMOL/L (136-145); TRIGLYCERIDES LEVEL 78 MG/DL (<150)
[2025-09-30 10:52] LABS: ESTIMATED AVERAGE GLUCOSE 123.0 MG/DL (60-110)
== END ==
LOC: M PLALAB 07:40
PROVIDERS: ATTEND Nurse Practitioner Family
DX: I10 Essential (primary) hypertension (principal); R53.83 Other fatigue; E55.9 Vitamin D deficiency, unspecified; R73.01 Impaired fasting glucose; E78.5 Hyperlipidemia, unspecified